=== PATIENT | female | born 1985 | race Caucasian/White ===

== ENCOUNTER 2021-06-02 05:34 | Emergency (ER) | payer BC, SELFPAY ==
[2021-06-02] VITALS (12 sets, daily range): BP systolic 115–130; BP diastolic 68–91; PULSE 49–95; RESP 18–24; TEMP 37.2; O2SAT 100
--- NOTE | ~2021-06-02 | CT_ITS ---
EXAMINATION: CT abdomen pelvis w con DATE: 06/02/2021 08:02 INDICATION: Abdominal pain, nausea, vomiting and diarrhea. TECHNIQUE: Computed tomography (CT) of the abdomen and pelvis was performed with 100 mL Omnipaque-350 intravenous contrast. Automated exposure control and iterative reconstruction technique were employe d. The dose-length product was 473.46 mGy-cm. COMPARISON: None FINDINGS: Lung bases are clear. Just inferior heart is normal. No pericardial or pleural effusion. Mild peripor damion edema. Gallbladder, spleen, pancreas and left adrenal gland are normal. Small calcification withi n the otherwise normal right adrenal gland. A couple small bilateral renal cysts, the larger on the r ight measuring 1 cm. Bowels including the appendix are normal. Bladder is normal. The uterus is not i dentified and has likely been surgically resected. 2.5 cm peripherally enhancing right ovarian corpus luteum cyst. Small amount of likely physiologic free fluid in the pelvis. No abscess or free intrape ritoneal gas. Transitional partially lumbarized S1 segment. Bilateral L5 pars intra-articular is defe cts. Small bone island at the left femoral head. IMPRESSION: 1. Fluid throughout the colon consistent with diarrhea of indeterminate etiology. 2. Nonspecific mild periportal edema. This can be seen with congestive heart failure cholangitis or a ggressive fluid resuscitation. Correlate with liver function tests. Reviewed, dictated and finalized at location A. IMPRESSION: 1. Fluid throughout the colon consistent with diarrhea of indeterminate etiolog y. 2. Nonspecific mild periportal edema. This can be seen with congestive heart fa ilure cholangitis or aggressive fluid resuscitation. Correlate with liver funct ion tests.
[2021-06-02] MEDS: ONDANSETRON INJ 4 MG/2 ML VIAL IV PUSH ×2 (05:50→08:50)
[2021-06-02] MEDS: SODIUM CHLORIDE 0.9% IV 1,000 ML 999 ML IV CONT ×2 (05:50→08:00)
[2021-06-02] MEDS: PROMETHAZINE HCL 25 MG/ML AMPUL 12.5 MG IV PUSH (05:57)
[2021-06-02 05:59] LABS: Basophils Percent Auto 0.4 % (0.2-1.2); Eosinophils Absolute Auto 0.3 K/mm3 (0-0.3); Eosinophils Percent Auto 2.6 % (0-4.4); Hematocrit 39.8 % (37.0-47.0); Hemoglobin 13.4 g/dL (12.0-15.0); Immature Granulocyte Absolute 0.06 K/mm3 (0.00-0.031); Immature Granulocyte Percent A 0.6 % (0-0.5); Lymphocytes Absolute Auto 3.37 K/mm3 (0.9-3.2); Lymphocytes Percent Auto 32.1 % (18.3-44.2); Mean Corpuscular HGB Conc 33.7 g/dl (32-36); Mean Corpuscular Hemoglobin 32.1 pg (26-34); Mean Corpuscular Volume 95.4 fl (80-100); Mean Platelet Volume 10.4 fl (7.4-10.4); Monocytes Absolute Auto 0.8 K/mm3 (0.1-0.6); Monocytes Percent Auto 7.4 % (2.6-8.5); Neutrophils Percent Auto 56.9 % (45.5-73.1); Platelet Count Result 296 k/mm3 (150-375); Red Blood Count 4.17 M/mm3 (4.2-5.4); Red Cell Distribution Width 12.2 % (11.5-14.5); White Blood Count 10.5 K/mm3 (4.5-10.0)
[2021-06-02] MEDS: SODIUM CHLORIDE 0.9% IV 100 ML 500 ML (06:00)
--- NOTE | 2021-06-02 06:00 | ED.NAVMDI ---
HPI - Nausea/Vomiting/Diarrhea General Chief complaint: Nausea/Vomiting/Diarrhea Stated complaint: Vomiting/Diarrhea Time Seen by Provider: 06/02/21 05:47 Source: patient Mode of arrival: ambulatory Limitations: no limitations History of Present Illness HPI Narrative: Patient is a 35-year-old female complaining of nausea, vomiting, diarrhea accompanied by abdominal discomfort that started 2 days ago. Patient describes her vomitus as nonbilious nonbloody. Patient describes her diarrhea as loose watery. Patient denies any fever or chills. Related Data Allergies Allergy/AdvReac Type Severity Reaction Status Date / Time No Known Allergies Allergy Unverified 11/27/16 09:09 Review of Systems Review of Systems: All systems reviewed & are unremarkable except as noted in HPI and below Constitutional: Constitutional: Denies body ache(s), Denies chills, Denies excessive sweating, Denies fatigue, Denies fever(s), Denies headache(s), Denies lethargy, Denies malaise, Denies weakness and Denies weight loss Eyes: Eyes: Denies blurry vision, Denies change in vision and Denies loss of vision ENT: Denies dizziness, Denies ear discharge, Denies headache(s), Denies lip swelling, Denies epistaxis, Denies nasal congestion, Denies neck pain, Denies throat swelling and Denies tongue swelling Cardiovascular: Cardiovascular: Denies chest pain, Denies chest pain at rest, Denies chest pain with activity, Denies diaphoresis, Denies rapid heart rate, Denies edema, Denies irregular heart rhythm, Denies lightheadedness, Denies palpitations, Denies dyspnea and Denies dyspnea on exertion Respiratory: Respiratory: Denies chest congestion, Denies cough, Denies hemoptysis, Denies dyspnea and Denies dyspnea on exertion Gastrointestinal: Gastrointestinal: Denies melena, Denies hematochezia and Denies hematemesis Musculoskeletal: Musculoskeletal: Denies abnormal gait, Denies deformity, Denies joint swelling, Denies limited range of motion, Denies neck pain and Denies numbness Neurologic: Denies Abnormal speech present, Denies abnormal gait, Denies confusion, Denies dizziness, Denies headache(s), Denies focal weakness, Denies loss of vision, Denies numbness, Denies Other visual disturbances, Denies Sensory deficit (Neuro) and Denies weakness Psychiatric: Psychiatric: Denies confusion, Denies depression, Denies auditory hallucinations, Denies homicidal ideation and Denies suicidal ideation Endocrine: Endocrine: Denies cold intolerance, Denies excessive sweating, Denies fatigue, Denies heat intolerance and Denies palpitations Hematologic/Lymphatic: Hematologic/Lymphatic: Denies easy bleeding and Denies easy bruising Allergic/Immunologic: Allergic/Immunologic: Denies lip swelling, Denies throat swelling and Denies tongue swelling PMFSH Family History Family History Mother Family history of mental disorder Family history of bipolar disorder Father Family history of schizophrenia, Onset Age: 52 Grandparent Malignant neoplasm of prostate Social History Social History Smoking status: Former smoker Second hand tobacco smoke exposure: No Smoking end date: 02/10/10 Alcohol intake: current Comments Past medical history: Depression, anxiety Social history: Former smoker, no EtOH use, occasional marijuana use Exam Const: General: cooperative, healthy appearing, comfortable, no acute distress, well developed, alert and awake; No confusion Orientation/consciousness: oriented to person, oriented to place, oriented to time, patient oriented x3 and No confusion Limitations: no limitations HENMT: Head: normal to inspection, normocephalic and atraumatic Ears: hearing grossly normal bilaterally, TM normal on the right and TM normal on the left General nose exam: Normal external nose present, Normal nares present and No nasal discharge present
[2021-06-02 06:11] LABS: Alanine Aminotransferase 17 U/L (4-35); Albumin Level 4.5 g/dL (3.5-5.1); Alkaline Phosphatase 56 U/L (38-126); Anion Gap 13 mmol/L (8-16); Aspartate Amino Transferase 30 U/L (14-36); Bilirubin,Total 0.2 mg/dL (0.2-1.3); Blood Urea Nitrogen 11 mg/dL (7-17); Calcium 9.2 mg/dL (8.4-10.2); Carbon Dioxide 21 mmol/L (22-30); Chloride 104 mmol/L (98-107); Estimated Glomerular Filt Rate > 60; Glucose 111 mg/dL (65-110); Lipase 31 U/L (23-300); Potassium 3.5 mmol/L (3.4-5.0); Sodium 138 mmol/L (137-145)
[2021-06-02 06:31] LABS: Add Urine Microscopic? YES; Appearance Urine Cloudy (Clear); Bilirubin Urine Negative (Negative); Blood Urine Negative (Negative); Color Urine Amber (Yellow); Glucose Urine UA Negative (Negative); Ketones Urine Trace mg/dL (Negative); Leukocyte Esterase Ur Negative LEU/UL (Negative); Mucus Urine Moderate /lpf; Nitrate Urine Negative (Negative); Protein Urine 1+ mg/dL (Negative); RBC Urine 0-2 /hpf (0-2); Specific Grav Ur 1.019 (1.001-1.035); Squamous Epithelial Cell Urine Moderate /hpf (Few); Urobilinogen Urine Negative mg/dL (<2.0); WBC Clumps Urine Present /HPF
[2021-06-02] MEDS: KETOROLAC 30 MG/ML VIAL (*BKC) IV PUSH (06:35)
--- NOTE | 2021-06-02 06:42 | ECG_ITS ---
Measurements Intervals [place] Rate: 58 P: -9 FL: 141 QRS: 69 QRSD: 86 T: 61 QT: 382 QTc: 377 Interpretive Statements SINUS BRADYCARDIA WITH MARKED SINUS ARRHYTHMIA OTHERWISE NORMAL ECG NO PREVIOUS ECG AVAILABLE FOR COMPARISON Electronically Signed On 06-02-2021 11:28:13 CDT by Lenin San M.D.
[2021-06-02] MEDS: PANTOPRAZOLE SODIUM IV 40 MG VIAL IV PUSH (07:16)
[2021-06-02] MEDS: HYDROmorphone HCL INJ (*CRX) 1 MG/ML SYR 0.5 MG IV PUSH (08:49)
[2021-06-02] MEDS: DICYCLOMINE HCL 10 MG CAPSULE PO (08:50)
== END 2021-06-02 09:15 | disposition home or self-care (01) ==
PROVIDERS: Emergency Provider Emergency Medicine; PCP Internal Medicine
DX: K52.9 Noninfective gastroenteritis and colitis, unspecified (principal); Z87.891 Personal history of nicotine dependence
CPT/HCPCS: 36415; 74177; 80053; 81001; 81025; 83690; 85025; 87086; 87088; 93005; 96361; 96374; 96375; 96376; 99284; A9270; C9113; J1170; J1885; J2405; J2550; J7030; Q9967

== ENCOUNTER 2021-06-03 13:29 | Emergency (ER) | payer BC, SELFPAY ==
[2021-06-03 13:31] VITALS: BP 100/81; PULSE 55; RESP 18; O2SAT 100
--- NOTE | 2021-06-03 13:46 | PC.NURSE ---
Patient reports she was here yesterday with N/V/D sent home with Zofran without relief. Patient hyperventilating upon publications writer's entrance to ED room. Coffee Attendant established peripheral IV to patient's left AC. Patient tolerated well. Blood work obtained, not sent at this time, awaiting doctor's orders. Coffee Attendant instructed patient to slow down her breathing.
--- NOTE | 2021-06-03 13:52 | ED.NAVMDI ---
HPI - Nausea/Vomiting/Diarrhea General Chief complaint: Nausea/Vomiting/Diarrhea Stated complaint: N/V/D Time Seen by Provider: 06/03/21 13:40 Source: patient Mode of arrival: ambulatory Limitations: no limitations History of Present Illness HPI Narrative: Patient is a 35-year-old female complaining of nausea, vomiting, diarrhea that started 3 days ago. Patient describes her vomitus nonbilious nonbloody. Patient describes her diarrhea as loose watery. Patient was seen here 2 days ago for similar complaints, had labs and CT scan done and all were within normal limits, diagnosed with cyclic vomiting syndrome likely caused by cannabis. Patient admits to regular THC use. Related Data Allergies Allergy/AdvReac Type Severity Reaction Status Date / Time No Known Allergies Allergy Unverified 11/27/16 09:09 Review of Systems Review of Systems: All systems reviewed & are unremarkable except as noted in HPI and below Constitutional: Constitutional: Denies body ache(s), Denies chills, Denies excessive sweating, Denies fatigue, Denies fever(s), Denies headache(s), Denies lethargy, Denies malaise, Denies weakness and Denies weight loss Eyes: Eyes: Denies blurry vision, Denies change in vision and Denies loss of vision ENT: Denies dizziness, Denies ear discharge, Denies headache(s), Denies lip swelling, Denies epistaxis, Denies nasal congestion, Denies neck pain, Denies throat swelling and Denies tongue swelling Cardiovascular: Cardiovascular: Denies chest pain, Denies chest pain at rest, Denies chest pain with activity, Denies diaphoresis, Denies rapid heart rate, Denies edema, Denies irregular heart rhythm, Denies lightheadedness, Denies palpitations, Denies dyspnea and Denies dyspnea on exertion Respiratory: Respiratory: Denies chest congestion, Denies cough, Denies hemoptysis, Denies dyspnea and Denies dyspnea on exertion Gastrointestinal: Gastrointestinal: Denies abdominal pain, Denies melena, Denies hematochezia and Denies hematemesis Musculoskeletal: Musculoskeletal: Denies abnormal gait, Denies deformity, Denies joint swelling, Denies limited range of motion, Denies neck pain and Denies numbness Neurologic: Denies Abnormal speech present, Denies abnormal gait, Denies confusion, Denies dizziness, Denies headache(s), Denies focal weakness, Denies loss of vision, Denies numbness, Denies Other visual disturbances, Denies Sensory deficit (Neuro) and Denies weakness Psychiatric: Psychiatric: Denies confusion, Denies depression, Denies auditory hallucinations, Denies homicidal ideation and Denies suicidal ideation Endocrine: Endocrine: Denies cold intolerance, Denies excessive sweating, Denies fatigue, Denies heat intolerance and Denies palpitations Hematologic/Lymphatic: Hematologic/Lymphatic: Denies easy bleeding and Denies easy bruising Allergic/Immunologic: Allergic/Immunologic: Denies lip swelling, Denies throat swelling and Denies tongue swelling PMFSH Family History Family History Mother Family history of mental disorder Family history of bipolar disorder Father Family history of schizophrenia, Onset Age: 52 Grandparent Malignant neoplasm of prostate Social History Social History Smoking status: Former smoker Second hand tobacco smoke exposure: No Smoking end date: 02/10/10 Alcohol intake: current Comments Past medical history: None Social history: Non-smoker, occasional EtOH use, regular marijuana use Exam Const: General: cooperative, healthy appearing, comfortable, no acute distress, well developed, alert and awake; No confusion Orientation/consciousness: oriented to person, oriented to place, oriented to time, patient oriented x3 and No confusion Limitations: no limitations HENMT: Head: normal to inspection, normocephalic and atraumatic Ears: hearing grossly normal bilaterally, TM normal
[2021-06-03] MEDS: SODIUM CHLORIDE 0.9% IV 1,000 ML 999 ML IV CONT (13:56)
[2021-06-03] MEDS: diphenhydrAMINE HCl INJ 50 MG/ML VIAL 25 MG IV PUSH (13:56)
[2021-06-03] MEDS: METOCLOPRAMIDE HCL INJ 10 MG/2 ML VIAL IV PUSH (13:58)
[2021-06-03 14:17] LABS: Basophils Percent Auto 0.1 % (0.2-1.2); Hematocrit 35.3 % (37.0-47.0); Hemoglobin 12.3 g/dL (12.0-15.0); Immature Granulocyte Absolute 0.06 K/mm3 (0.00-0.031); Immature Granulocyte Percent A 0.4 % (0-0.5); Lymphocytes Absolute Auto 2.28 K/mm3 (0.9-3.2); Lymphocytes Percent Auto 16.3 % (18.3-44.2); Mean Corpuscular HGB Conc 34.8 g/dl (32-36); Mean Corpuscular Hemoglobin 32.5 pg (26-34); Mean Corpuscular Volume 93.4 fl (80-100); Mean Platelet Volume 10.4 fl (7.4-10.4); Monocytes Absolute Auto 0.9 K/mm3 (0.1-0.6); Monocytes Percent Auto 6.1 % (2.6-8.5); Neutrophils Absolute Auto 10.8 K/mm3 (1.3-6.7); Neutrophils Percent Auto 77.1 % (45.5-73.1); Platelet Count Result 309 k/mm3 (150-375); Red Blood Count 3.78 M/mm3 (4.2-5.4); Red Cell Distribution Width 12.1 % (11.5-14.5)
[2021-06-03 14:20] LABS: Alanine Aminotransferase 23 U/L (4-35); Albumin Level 4.6 g/dL (3.5-5.1); Alkaline Phosphatase 52 U/L (38-126); Anion Gap 11 mmol/L (8-16); Aspartate Amino Transferase 35 U/L (14-36); Bilirubin,Total 0.7 mg/dL (0.2-1.3); Blood Urea Nitrogen 8 mg/dL (7-17); Calcium 9.3 mg/dL (8.4-10.2); Carbon Dioxide 20 mmol/L (22-30); Chloride 107 mmol/L (98-107); Estimated CRCL calculation 110 ml/min; Estimated Glomerular Filt Rate > 60; Glucose 109 mg/dL (65-110); Lipase 29 U/L (23-300); Potassium 3.1 mmol/L (3.4-5.0); Sodium 138 mmol/L (137-145)
[2021-06-03] MEDS: POTASSIUM CHLORIDE 20 MEQ TABLET PO (14:49)
[2021-06-03] MEDS: PANTOPRAZOLE SODIUM IV 40 MG VIAL IV PUSH (16:26)
== END 2021-06-03 17:22 | disposition home or self-care (01) ==
PROVIDERS: Emergency Provider Emergency Medicine; PCP Internal Medicine
DX: R11.15 Cyclical vomiting syndrome unrelated to migraine (principal); Z87.891 Personal history of nicotine dependence
CPT/HCPCS: 36415; 80053; 83690; 85025; 96361; 96374; 96375; 99284; A9270; C9113; J1200; J2765; J7030

== ENCOUNTER 2021-06-04 14:25 | Outpatient (CLI) | payer BC, SELFPAY ==
[2021-06-04 15:11] LABS: Basophils Percent Auto 0.3 % (0.2-1.2); Eosinophils Percent Auto 0.2 % (0-4.4); Hematocrit 36.2 % (37.0-47.0); Hemoglobin 12.4 g/dL (12.0-15.0); Immature Granulocyte Absolute 0.06 K/mm3 (0.00-0.031); Immature Granulocyte Percent A 0.5 % (0-0.5); Lymphocytes Absolute Auto 2.39 K/mm3 (0.9-3.2); Lymphocytes Percent Auto 21.2 % (18.3-44.2); Mean Corpuscular HGB Conc 34.3 g/dl (32-36); Mean Corpuscular Volume 93.5 fl (80-100); Mean Platelet Volume 10.5 fl (7.4-10.4); Monocytes Absolute Auto 0.8 K/mm3 (0.1-0.6); Monocytes Percent Auto 6.8 % (2.6-8.5); Platelet Count Result 287 k/mm3 (150-375); Red Blood Count 3.87 M/mm3 (4.2-5.4); Red Cell Distribution Width 12.1 % (11.5-14.5); White Blood Count 11.3 K/mm3 (4.5-10.0)
[2021-06-04 15:22] LABS: Alanine Aminotransferase 20 U/L (4-35); Albumin Level 4.6 g/dL (3.5-5.1); Alkaline Phosphatase 54 U/L (38-126); Amylase 110 U/L (30-110); Anion Gap 8 mmol/L (8-16); Aspartate Amino Transferase 31 U/L (14-36); Bilirubin,Total 0.5 mg/dL (0.2-1.3); Blood Urea Nitrogen 10 mg/dL (7-17); Calcium 8.9 mg/dL (8.4-10.2); Carbon Dioxide 24 mmol/L (22-30); Chloride 106 mmol/L (98-107); Estimated Glomerular Filt Rate > 60; Glucose 93 mg/dL (65-110); Lipase 41 U/L (23-300); Magnesium 2.1 mg/dL (1.6-2.3); Sodium 138 mmol/L (137-145)
== END 2021-06-04 14:26 | disposition home or self-care (01) ==
LOC: ANHLAB 14:32
PROVIDERS: PCP Physician Assistant; Visit Provider Physician Assistant
DX: R11.15 Cyclical vomiting syndrome unrelated to migraine (principal)
CPT/HCPCS: 36415; 80053; 82150; 83690; 83735; 85025

== ENCOUNTER 2022-06-13 10:13 | Outpatient (CLI) | payer BC, SELFPAY | END 2022-06-13 10:14 | disposition home or self-care (01) | LOC: ANHSURGERY 10:20 | PROVIDERS: PCP Physician Assistant; Visit Provider Obstetrics & Gynecology | DX: N80.9 Endometriosis, unspecified (principal); Z01.818 Encounter for other preprocedural examination | CPT/HCPCS: 36415; 86850; 86900; 86901 ==

== ENCOUNTER 2022-06-13 10:22 | Outpatient (CLI) | payer BC, SELFPAY ==
[2022-06-13 12:04] LABS: Thyroid Stimulating Hormone 0.892 uIU/mL (0.465-4.680)
[2022-06-17 23:55] LABS: Vitamin D 1,25 (OH)2 Total 37 pg/mL (18-72); Vitamin D2 1,25 (OH)2 <8 pg/mL; Vitamin D3 1,25 (OH)2 37 pg/mL
== END 2022-06-13 10:23 | disposition home or self-care (01) ==
PROVIDERS: PCP Physician Assistant; Visit Provider Physician Assistant
DX: R53.83 Other fatigue (principal)
CPT/HCPCS: 36415; 82652; 84443

== ENCOUNTER 2022-06-19 06:52 | Day surgery (SDC) | payer BC, SELFPAY ==
[2022-06-10 15:08] VITALS: BMI 29.2
--- NOTE | 2022-06-10 15:24 | SUR.PREOP ---
Report to the Outpatient Waiting Room, entrance under the green pavilion located off [facility], at time 1100 on date 06/19/22. Planned Procedure Time: 1300. Time changes happen often and if your time is changed the preop area will call you the afternoon before. - You and your visitor will be asked to self-screen and do not enter if you have any COVID symptoms. - A mask is optional within the hospital at this time. Patients may have clear liquids (water, carbonated beverages, clear teas, apple juice) until 3 hours prior to surgery with a maximum of 20 ounces. - No food from midnight until time of surgery - Infants may have breast milk until 4 hours before surgery, infant formula 6 hours prior to surgery. - Children will be allowed to drink immediately following surgery. If applicable, please bring a bottle or sippy cup to assist with drinking. Juice, water, soda, and popsicles are readily available. For infants on formula, please bring formula the day of surgery. Pacifiers are allowed. Take the following medications with a SIP of water the morning of surgery: JOVANNI DO NOT STOP ANY OF YOUR OTHER PRESCRIPTION MEDICATIONS PRIOR TO SURGERY ?EXCEPT THE FOLLOWING Medications to discontinue per physician STOP ALL VITAMINS AND SUPPLIMENTS 3 DAYS PRIOR TO PROCEDURE Date to take last dose 06/16/22 Please no make-up, nail macedonian, hairspray, perfume, deodorant, or body powder the day of surgery. No jewelry (including any body piercings) or valuables the day of surgery, leave them at home. Please take a shower or bath the night before, or the morning of, surgery with an antibacterial soap. Wear comfortable, loose fitting clothing. Children are encouraged to wear pajamas. - Jewelry must be removed prior to entering the operating room. Rings and piercings that are not removed may be cut off. - The hospital will not accept responsibility for valuables. - Please leave all valuables, including medications, at home the day of surgery. If you are going home after surgery, a licensed solo truck driver must drive you home. - NO public transportation without another adult if you receive anesthesia. - We recommend that an adult stay with you for 24 hours following discharge. - We also recommend that you do not drive, make important decision, drink alcoholic beverages, or take any drugs that were not prescribed by your health care provider for at least 24 hours after your discharge time. For Pediatric surgeries, we recommend two adults accompany the child home. Follow any additional instructions given to you from your surgeon. If you or anyone in your household have experienced Covid symptoms in the past week, please notify your surgeon or the nurse liaison at the phone number below for possible testing. Telephone instructions given to BIN MARTINEZ and asked if any additional questions and then verbalized understanding. Patient advised to call surgeon office or pre surgery nurse liaison [phone] if any additional questions.
[2022-06-19] VITALS (7 sets, daily range): BP systolic 104–130; BP diastolic 56–78; PULSE 52–101; RESP 14–18; TEMP 36.3–36.5; O2SAT 96–100; BMI 28.1
--- NOTE | 2022-06-19 10:30 | SUR.PREOP ---
1030- Notified patient and spouse Herber procedure start time will be delayed. Patient and Herber verbalized understanding.
[2022-06-19] MEDS: LACTATED RINGERS 1,000 ML 30 ML IV CONT ×2 (10:45→14:32)
[2022-06-19] MEDS: KETOROLAC 15 MG/ML VIAL (*BKC) IV PUSH (10:49)
[2022-06-19] MEDS: ACETAMINOPHEN 500 MG TABLET 1000 MG PO (10:49)
--- NOTE | 2022-06-19 11:05 | WPDANESEPPF ---
Anes - Initial Pre Proc Eval Procedure: Operation Date: 06/19/22 12:00 Proposed Procedures p Robotic Assisted Laparoscopic Bilateral Salpingo-oophorectomy - Diane August MD Date/Time: 06/19/22 11:05 Surgeon: Diane August MD Pre Op Diagnosis: Endom of Pelvis Patient Data Age: 36 Gender: F Height: 1.63 m Weight: 74.45 kg Allergies Allergy/AdvReac Type Severity Reaction Status Date / Time No Known Allergies Allergy Verified 06/19/22 10:54 Home Medications Medication Instructions Recorded Confirmed Type dicyclomine 10 mg capsule 10 mg PO BID PRN cramps #10 caps 06/02/21 06/10/22 Rx ondansetron 4 mg disintegrating 4 mg PO Q8H PRN nausea and 06/02/21 06/10/22 Rx tablet vomiting #10 tabs ondansetron 4 mg disintegrating 4 mg PO Q8H PRN nausea and 06/02/21 06/10/22 Rx tablet vomiting #14 tabs buspirone 10 mg tablet 10 mg PO TID 06/10/22 06/10/22 History duloxetine 60 mg capsule,delayed 60 mg PO DAILY 06/10/22 06/10/22 History release quetiapine 100 mg tablet 100 mg PO DAILY 06/10/22 06/10/22 History Patient hx anesthesia problems: none Family hx anesthesia problems: none Results Review: All pre-operative results and documents have been reviewed as part of the pre-operative evaluation. [facility] Past Medical History Medical History (Updated 06/19/22 @ 11:06 by Khurram Chamorro MD) Anxiety IBS (irritable bowel syndrome) Surgical History Surgical History (Updated 06/19/22 @ 11:06 by Khurram Chamorro MD) H/O: hysterectomy Family History Family History Mother Family history of mental disorder Family history of bipolar disorder Father Family history of schizophrenia, Onset Age: 52 Grandparent Malignant neoplasm of prostate Social History Social History Smoking status: Former smoker Second hand tobacco smoke exposure: No Smoking end date: 02/10/10 Alcohol intake: current Substance use type: marijuana Living arrangements: with family Spiritual care concerns: No Anes - Eval Final PreProcedure Day of Procedure 06/19/22 11:05 Patient weight: overweight Heart: regular rate and rhythm Lungs: clear to auscultation Airway: Mallampati scale class II Neurological: alert and oriented Last oral intake: >/= 8 hours ASA classification: II Emergent: no Anesthetic plan: proceed Anesthesia type and monitoring: general ETT and standard monitoring Results Review: All pre-operative results and documents have been reviewed as part of the pre-operative evaluation. Informed Consent: The patient's anesthetic plan and its attendant risks and benefits were discussed with the patient/family/POA. Questions were solicited and answers provided to the satisfaction of the patient/family/POA.
--- NOTE | 2022-06-19 12:47 | WPDHPUPDATE1 ---
History and Physical Update Update Date/Time: 06/19/22 12:47 History and Physical has been reviewed, including an updated exam of the patient. There are NO changes in the patient's condition. Risks, benefits, and alternatives have been discussed and questions answered. Patient agrees to proceed with procedure.
--- NOTE | 2022-06-19 14:39 | P.OP_ITS ---
Procedure Note - Detailed Date of Procedure 06/19/22 Pre-op Diagnosis Endom of Pelvis Post-op Diagnosis Same Procedure Performed Robot assisted Total hysterectomy with bilateral salpingectomy. Surgeon Diane August MD Anesthesia General Indications heavy vaginal bleeding, pelvic pain Findings normal-appearing uterus, ovaries, and left tube, right tube was partially resected. Some scarring over the posterior cul-de-sac peritoneum. Description of Procedure This patient was taken to the operating room. She was prepped and draped in the dorsal lithotomy position after induction of general anesthesia. The uterine manipulator and Cyn cup were placed. This was done with a speculum and tenaculum. The speculum was placed. The cervix was grasped with a tenaculum. The stay sutures were placed at 3 and 9:00 a.m.. The stay sutures of 0 Vicryl were tied to the appropriately Size scope after it was slipped around the cervix.. The tip of the MARTIN manipulator was placed in the intrauterine cavity. The cup was slid into place around the cervix and into the fornices. It was locked into place. The sutures were then wrapped around the handle and tied under tension. A 8 mm skin incision was made in the left upper quadrant the abdomen. a 5 mm Visiport trocar was inserted into abdominal cavity and pneumoperitoneum was achieved. A 8 mm supraumbilical incision was made and a 8 mm trocar was inserte d into the intrauterine cavity under direct visualization of the scope. an 8 mm incision was made in the right upper quadrant of the abdomen and an 8 mm robotic trocar was placed the inter uterine cavity under direct visualization the scope. An 11 mm trocar was inserted in the right upper quadrant of the abdomen rectal is a cystoscope after an incision was made there as well. The robot was docked. Electronic Orientation of the robot was performed. Bilateral ovaries were raised, infundibulopelvic ligaments were cauterized and transected, para ovarian tissue was transected and cauterized with vessel sealer as was the infundibulopelvic ligament. Some endometriosis was removed in the right lower pelvis. Ureter was dissected out on the right distal part the ovarian artery. Endometriosis was overlying the ureter there. It was cauterized when it was from the Ureter. It was examined directly. The vagina was irrigated with Betadine solution after removal of the Pneumo occluder. the trocars were removed after the robot was undocked. The skin was closed with subacute or Dermabond. The patient was taken to recovery room. She was stable condition. Sponge lap and needle counts were correct x2. Estimated Blood Loss 125 Urine Output 800 Drains Yes Packing No Pathology Yes Complications No immediate complications Condition Stable Disposition Floor
[2022-06-19] MEDS: fentaNYL CITRATE INJ (*CRX) 100 MCG/2 ML VIAL 25 MCG IV PUSH ×4 (14:54→15:09)
[2022-06-19] MEDS: oxyCODONE HCL (*CRX) 5 MG TAB IR PO (15:43)
--- NOTE | 2022-06-22 06:07 | W.PM.PROC2 ---
Procedure Note - Detailed Date of Procedure 06/22/22 Pre-op Diagnosis Endom of Pelvis , pelvic pain Post-op Diagnosis Same Procedure Performed robotic bilateral salpingo-oophorectomy with fulguration endometriosis. Surgeon Diane August MD Anesthesia General Indications Pelvic pain Findings scant areas of endometriosis deep in the pelvis and the vaginal cuff and in the right adnexa, normal-appearing ovaries Description of Procedure A 8 mm skin incision was made in the left upper quadrant the abdomen. a 5 mm Visiport trocar was inserted into abdominal cavity and pneumoperitoneum was achieved.? A 8 mm supraumbilical incision was made and a 8 mm trocar was inserted into the intrauterine cavity under direct visualization of the scope. an 8 mm incision was made in the right upper quadrant of the abdomen and an 8 mm robotic trocar was placed the inter uterine cavity under direct visualization the scope.? An 11 mm trocar was inserted in the right upper quadrant of the abdomen rectal is a cystoscope after an incision was made there as well.? The robot was docked.? Electronic? Orientation of the robot was performed. Bilateral ovaries were raised, infundibulopelvic ligaments were cauterized and transected, para ovarian tissue was transected and cauterized with vessel sealer as was the infundibulopelvic ligament.? Some endometriosis was removed in the right lower pelvis.? Ureter was dissected out on the right distal part the ovarian artery.? Endometriosis was overlying the ureter there.? It was cauterized when it was from the? Ureter. ?It was examined directly.? The vagina was irrigated with Betadine solution after removal of the Pneumo occluder. the trocars were removed after the robot was undocked.? The skin was closed with subacute or Dermabond.? The patient was taken to recovery room.? She was stable condition.? Sponge lap and needle counts were correct x2. Estimated Blood Loss 125 Urine Output 800 Pathology Yes Complications No immediate complications Condition Stable
== END 2022-06-19 16:13 | disposition home or self-care (01) ==
PROVIDERS: PCP Physician Assistant; Visit Provider Obstetrics & Gynecology
PROC: 8E0W4CZ Robotic Assisted Procedure of Trunk Region, Percutaneous Endoscopic Approach (ICD-10-PCS; CPT 49320; principal; 2022-06-19 12:00)
DX: N80.8 Other endometriosis (principal); R10.2 Pelvic and perineal pain; N80.A61 Endometriosis of right ureter, unspecified depth; F41.9 Anxiety disorder, unspecified; K58.9 Irritable bowel syndrome, unspecified; Z87.891 Personal history of nicotine dependence; F12.90 Cannabis use, unspecified, uncomplicated
CPT/HCPCS: 58661; 58662; 88305; A9270; J0330; J1100; J1170; J1630; J1885; J2250; J2405; J2704; J2710; J3010; J7030; J7120

== ENCOUNTER 2022-06-20 15:42 | Emergency (ER) | payer BC, SELFPAY ==
[2022-06-20] VITALS (10 sets, daily range): BP systolic 102–139; BP diastolic 68–84; PULSE 62–72; RESP 16–18; TEMP 36.6–36.8; O2SAT 92–100
--- NOTE | ~2022-06-20 | CT_ITS ---
EXAMINATION: CT abdomen pelvis w con DATE: 06/20/2022 17:41 INDICATION: Left lower quadrant abdominal pain. TECHNIQUE: Computed tomography (CT) of the abdomen and pelvis was performed with 100 mL Omnipaque 350 intravenous contrast. Automated exposure control and iterative reconstruction technique were employe d. The dose-length product was 570.23 mGy-cm. COMPARISON: CT abdomen and pelvis 06/02/2021 FINDINGS: The visualized portions of the lung bases demonstrate a calcified left lung nodule, consist ent with old granulomatous disease. No pleural effusion. The heart size is normal. No pericardial eff usion. There is periportal edema in the liver. The gallbladder is normal in size. Gallbladder wall th ickening is seen, likely interstitial edema. The spleen, pancreas, and left adrenal gland are normal. There is a dystrophic calcification in right adrenal gland. There is a 5 mm cyst in right kidney. Le ft kidney is normal. There is gas in the bladder lumen, likely from recent instrumentation. There are no dilated loops of bowel. The appendix is normal. There is physiologic fluid in the pelvis. There a re areas of fat stranding in anterior abdominal wall and foci of free intraperitoneal gas, consistent with recent surgery. There is mild thoracolumbar spondylosis. There are chronic bilateral L4 pars de fects. L5 is a transitional segment. IMPRESSION: 1. No specific etiology for the patient's symptoms. Reviewed, dictated and finalized at location E.
[2022-06-20] MEDS: MORPHINE SULFATE (*CRX) 4 MG/ML INJ IV PUSH (17:00)
[2022-06-20] MEDS: SODIUM CHLORIDE 0.9% IV 1,000 ML 999 ML IV CONT (17:01)
[2022-06-20 17:09] LABS: Basophils Absolute Auto 0.1 K/mm3 (0.0-0.1); Basophils Percent Auto 0.5 % (0.2-1.2); Eosinophils Absolute Auto 0.1 K/mm3 (0-0.3); Eosinophils Percent Auto 0.5 % (0-4.4); Hematocrit 34.3 % (37.0-47.0); Hemoglobin 11.5 g/dL (12.0-15.0); Immature Granulocyte Absolute 0.07 K/mm3 (0.00-0.031); Immature Granulocyte Percent A 0.5 % (0-0.5); Lymphocytes Absolute Auto 4.01 K/mm3 (0.9-3.2); Lymphocytes Percent Auto 29.9 % (18.3-44.2); Mean Corpuscular HGB Conc 33.5 g/dl (32-36); Mean Corpuscular Hemoglobin 31.8 pg (26-34); Mean Corpuscular Volume 94.8 fl (80-100); Mean Platelet Volume 10.3 fl (7.4-10.4); Monocytes Percent Auto 7.2 % (2.6-8.5); Neutrophils Absolute Auto 8.2 K/mm3 (1.3-6.7); Neutrophils Percent Auto 61.4 % (45.5-73.1); Platelet Count Result 262 k/mm3 (150-375); Red Blood Count 3.62 M/mm3 (4.2-5.4); Red Cell Distribution Width 12.5 % (11.5-14.5); White Blood Count 13.4 K/mm3 (4.5-10.0)
[2022-06-20 17:15] LABS: Alanine Aminotransferase 16 U/L (6-35); Albumin Level 4.3 g/dL (3.5-5.1); Alkaline Phosphatase 48 U/L (38-126); Anion Gap 7 mmol/L (8-16); Aspartate Amino Transferase 29 U/L (14-36); Bilirubin,Total 0.5 mg/dL (0.2-1.3); Blood Urea Nitrogen 10 mg/dL (7-17); Calcium 8.8 mg/dL (8.4-10.2); Carbon Dioxide 27 mmol/L (22-30); Chloride 105 mmol/L (98-107); Estimated CRCL calculation 113 ml/min; Estimated Glomerular Filt Rate > 60; Glucose 85 mg/dL (65-110); Lipase 20 U/L (23-300); Potassium 3.5 mmol/L (3.4-5.0); Sodium 139 mmol/L (137-145)
--- NOTE | 2022-06-20 17:33 | ED.GENADULT ---
HPI - General Adult General Chief complaint: Unspecified Stated complaint: post op pain Time Seen by Provider: 06/20/22 16:30 History of Present Illness HPI narrative: Patient is a 36-year-old female who presents ER with upper abdominal pain. Patient underwent bilateral oophorectomy yesterday by Dr. August for endometriosis. Pain increased today. She has been taking her Josephine without relief. No fevers or chills or sweats. No urinary frequency urgency or dysuria. She has not had a bowel movement yet. She is passing gas. Related Data Home Medications Medication Instructions Recorded Confirmed buspirone 10 mg tablet 10 mg PO TID 06/10/22 06/10/22 duloxetine 60 mg capsule,delayed 60 mg PO DAILY 06/10/22 06/10/22 release quetiapine 100 mg tablet 100 mg PO DAILY 06/10/22 06/10/22 Allergies Allergy/AdvReac Type Severity Reaction Status Date / Time No Known Allergies Allergy Verified 06/20/22 15:43 Review of Systems Review of Systems: All systems reviewed & are unremarkable except as noted in HPI and below Constitutional: Constitutional: Denies chills, Denies fatigue and Denies fever(s) Cardiovascular: Cardiovascular: Denies chest pain, Denies radiating jaw, neck or arm pain and Denies palpitations Respiratory: Respiratory: Denies cough and Denies dyspnea Gastrointestinal: Gastrointestinal: Reports abdominal pain, Denies diarrhea, Denies nausea and Denies vomiting Genitourinary: Genitourinary: Denies abnormal vaginal bleeding, Denies dysuria, Denies flank pain and Denies vaginal discharge [facility] Past Medical History Medical History (Updated 06/20/22 @ 18:32 by Stevan Thornton MD) Anxiety IBS (irritable bowel syndrome) Surgical History Surgical History (Updated 06/19/22 @ 11:06 by Khurram Chamorro MD) H/O: hysterectomy Family History Family History Mother Family history of mental disorder Family history of bipolar disorder Father Family history of schizophrenia, Onset Age: 52 Grandparent Malignant neoplasm of prostate Social History Social History Smoking status: Former smoker Second hand tobacco smoke exposure: No Smoking end date: 02/10/10 Alcohol intake: current Substance use type: marijuana Living arrangements: with family Spiritual care concerns: No Exam Narrative: GENERAL: Well-appearing, well-nourished, and in no acute distress. HEAD: Normocephalic, atraumatic. EYES: PERRL and EOMI. ENT: Mucous membranes moist. CHEST: Clear to auscultation. No respiratory distress. HEART: Regular rate and rhythm. Normal peripheral pulses. ABDOMEN: Soft, upper abdominal discomfort without guarding, nondistended, normal active bowel sounds. Well-healing surgical trocar sites. EXTREMITIES: Normal range of motion. No edema. SKIN: Warm, dry, no rash. NEURO: Alert and oriented x3. PSYCH: Normal mood and affect. Course Course Emergency Course: Labs unremarkable with exception of leukocytosis that is felt to be due to recent surgery. CT without acute fluid collection to indicate infection or other process. Patient informed of results and Dr. August informed of patient's visit to the ER. Patient without urinary symptoms and UA not felt to represent UTI at this time. Patient be discharged home. Vital Signs Vital signs: Vital Signs Temperature 97.9 F 06/20/22 15:45 Pulse Rate 62 06/20/22 15:45 Respiratory Rate 18 06/20/22 15:45 Blood Pressure 139/68 06/20/22 15:45 Pulse Oximetry 96 06/20/22 15:45 Oxygen Delivery Room Air 06/20/22 15:45 Temperature 97.9 F 06/20/22 15:45 Pulse Rate 62 06/20/22 15:45 Respiratory Rate 18 06/20/22 15:45 Blood Pressure 139/68 06/20/22 15:45 Pulse Oximetry 96 06/20/22 15:45 Oxygen Delivery Room Air 06/20/22 15:45 Medical Decision Making Vital Signs Vital Signs: Vital Sign
--- NOTE | 2022-06-20 17:48 | PC.NURSE ---
bed side preg done at 1745- it was neg
[2022-06-20 17:55] LABS: Appearance Urine Clear (Clear); Bacteria Urine 2+ /hpf; Bilirubin Urine Negative (Negative); Blood Urine Negative (Negative); Color Urine Yellow (Yellow); Glucose Urine UA Negative (Negative); Ketones Urine Negative (Negative); Leukocyte Esterase Ur Negative LEU/UL (Negative); Nitrate Urine Negative (Negative); Non Pathogenic Casts 0-2; Protein Urine Trace mg/dL (Negative); Squamous Epithelial Cell Urine Few /hpf (Few); Urobilinogen Urine 0.2 mg/dL (<2.0); pH Urine 6.5 (5.0-9.0)
[2022-06-20 17:57] LABS: Specific Grav Ur 1.059 (1.001-1.035)
[2022-06-20 17:58] LABS: Add Urine Microscopic? YES
== END 2022-06-20 18:55 | disposition home or self-care (01) ==
PROVIDERS: Emergency Provider Emergency Medicine; PCP Physician Assistant
DX: G89.18 Other acute postprocedural pain (principal); F41.9 Anxiety disorder, unspecified; Z87.891 Personal history of nicotine dependence
CPT/HCPCS: 36415; 74177; 80053; 81001; 83690; 85025; 87086; 87088; 96361; 96374; 99284; J2270; J7030; Q9967

== ENCOUNTER 2022-08-05 07:34 | Observation (INO) | payer BC, SELFPAY ==
--- NOTE | ~2022-08-05 | US_ITS ---
Limited Abdominal Sonogram: Real-time sonographic imaging of the right upper quadrant was performed. Clinical History: Epigastric pain Findings: The liver appears normal with no evidence of mass lesion or bile duct dilatation. Main por damion vein demonstrates normal direction of flow. The gallbladder is well distended, and appears normal with no evidence of gallstone or wall thickening. The common bile duct measures 8 mm. The visualize d pancreas, aorta, and IVC are unremarkable. Impression: No significant abnormality seen. Reviewed, dictated and finalized at location . Impression: No significant abnormality seen.
--- NOTE | ~2022-08-05 | CT_ITS ---
CT of the Abdomen and Pelvis: Indication: Abdominal pain Technique: 2.5 mm axial scans were obtained through the abdomen and pelvis following intravenous adm inistration of 100 cc of Omnipaque 350. Dose reduction technique was used on this scan by utilizing a utomated exposure control and iterative reconstruction technique. The dose-length product (DLP) was 4 85.72 mGy-cm. COMPARISON: 06/20/2022 Findings: Scans through the lung bases are unremarkable. The liver, spleen, pancreas, gallbladder, adrenals and kidneys are within normal limits. No evidence of aortic aneurysm. No lymphadenopathy. No bowel obstruction or bowel wall thickening. There is no evidence to suggest acute appendicitis. Images through the pelvis were performed. Urinary bladder unremarkable. No adnexal mass seen. No asci renata. Impression: No significant abnormalities seen. Reviewed, dictated and finalized at [facility]. Impression: No significant abnormalities seen.
[2022-08-05 07:46] VITALS: BP 110/78; PULSE 54; RESP 16; TEMP 36.3; O2SAT 100
[2022-08-05 08:30] LABS: Basophils Absolute Auto 0.1 K/mm3 (0.0-0.1); Basophils Percent Auto 0.4 % (0.2-1.2); Eosinophils Absolute Auto 0.1 K/mm3 (0-0.3); Eosinophils Percent Auto 0.5 % (0-4.4); Hemoglobin 12.6 g/dL (12.0-15.0); Immature Granulocyte Absolute 0.06 K/mm3 (0.00-0.031); Immature Granulocyte Percent A 0.5 % (0-0.5); Lymphocytes Absolute Auto 1.45 K/mm3 (0.9-3.2); Lymphocytes Percent Auto 11.9 % (18.3-44.2); Mean Corpuscular HGB Conc 34.1 g/dl (32-36); Mean Corpuscular Hemoglobin 32.1 pg (26-34); Mean Corpuscular Volume 94.1 fl (80-100); Mean Platelet Volume 10.2 fl (7.4-10.4); Monocytes Absolute Auto 0.7 K/mm3 (0.1-0.6); Monocytes Percent Auto 5.6 % (2.6-8.5); Neutrophils Absolute Auto 9.9 K/mm3 (1.3-6.7); Neutrophils Percent Auto 81.1 % (45.5-73.1); Platelet Count Result 274 k/mm3 (150-375); Red Blood Count 3.93 M/mm3 (4.2-5.4); Red Cell Distribution Width 12.8 % (11.5-14.5); White Blood Count 12.2 K/mm3 (4.5-10.0)
[2022-08-05 08:41] LABS: Alanine Aminotransferase 38 U/L (6-35); Albumin Level 4.5 g/dL (3.5-5.1); Alkaline Phosphatase 63 U/L (38-126); Anion Gap 10 mmol/L (8-16); Aspartate Amino Transferase 47 U/L (14-36); Bilirubin,Total 0.6 mg/dL (0.2-1.3); Blood Urea Nitrogen 17 mg/dL (7-17); Calcium 9.5 mg/dL (8.4-10.2); Carbon Dioxide 26 mmol/L (22-30); Chloride 102 mmol/L (98-107); Estimated CRCL calculation 93 ml/min; Estimated Glomerular Filt Rate > 60; Glucose 105 mg/dL (65-110); Sodium 138 mmol/L (137-145)
[2022-08-05 08:43] LABS: Ethanol < 10 mg/dL (<10)
[2022-08-05] MEDS: ONDANSETRON INJ 4 MG/2 ML VIAL IV PUSH ×3 (08:44→14:13)
[2022-08-05] MEDS: MORPHINE SULFATE (*CRX) 4 MG/ML INJ IV PUSH ×2 (08:44→10:59)
[2022-08-05 08:46] LABS: Appearance Urine Cloudy (Clear); Bacteria Urine 1+ /hpf; Bilirubin Urine Negative (Negative); Blood Urine Negative (Negative); Color Urine Dark Yellow (Yellow); Glucose Urine UA Negative (Negative); Ketones Urine 2+ mg/dL (Negative); Leukocyte Esterase Ur Trace LEU/UL (Negative); Mucus Urine Present /lpf; Nitrate Urine Negative (Negative); Non Pathogenic Casts 0-2; Protein Urine 1+ mg/dL (Negative); Specific Grav Ur 1.038 (1.001-1.035); Squamous Epithelial Cell Urine Moderate /hpf (Few)
[2022-08-05 08:47] LABS: Add Urine Microscopic? YES
[2022-08-05 08:52] LABS: Amphetamine Screen Urine Negative (Negative); Barbiturate Screen Urine Negative (Negative); Benzodiazepines Screen Urine Negative (Negative); Cannabinoid Screen Urine Positive (Negative); Cocaine Screen Urine Negative (Negative); Methadone Screen Urine Negative (Negative); Opiate Screen Urine Negative (Negative); Phencyclidine Screen Urine Negative (Negative)
--- NOTE | 2022-08-05 09:06 | ED.GENADULT ---
HPI - General Adult General Chief complaint: Psychiatric Symptoms Stated complaint: abd pain/n/si Time Seen by Provider: 08/05/22 07:59 History of Present Illness HPI narrative: Patient is a 37-year-old female who presents to the ER with both abdominal pain and suicidal ideation. Patient reports has had abdominal pain for 3 days. It is in her epigastric region. It occurred because she ate some pineapple pizza the day before. She has IBS. She is found no aggravating factors for her discomfort. It is constant and cramping. It is worse if she is hunched over in a ball. No vomiting or diarrhea. Denies fevers or chills or sweats. No history of gallstones. She reports due to her pain she has become suicidal but has no plan to kill herself. She denies any hospitalization for suicidal ideation but sees a therapist every 1 to 2 weeks and has frequent thoughts of suicidal ideation that are managed. Related Data Home Medications Medication Instructions Recorded Confirmed buspirone 10 mg tablet 10 mg PO TID 06/10/22 08/05/22 duloxetine 60 mg capsule,delayed 60 mg PO DAILY 06/10/22 08/05/22 release quetiapine 100 mg tablet 100 mg PO DAILY 06/10/22 08/05/22 estradiol 1.25 gram/actuation 1 pump topical DAILY 08/05/22 08/05/22 (0.06%) transdermal gel pump (EstroGel) Allergies Allergy/AdvReac Type Severity Reaction Status Date / Time No Known Allergies Allergy Verified 08/05/22 08:23 Review of Systems Review of Systems: All systems reviewed & are unremarkable except as noted in HPI and below Constitutional: Constitutional: Denies chills, Denies fatigue and Denies fever(s) ENT: Denies nasal congestion and Denies sore throat Cardiovascular: Cardiovascular: Denies chest pain, Denies rapid heart rate and Denies radiating jaw, neck or arm pain Gastrointestinal: Gastrointestinal: Reports abdominal pain, Denies diarrhea, Denies nausea and Denies vomiting Genitourinary: Genitourinary: Denies nocturia, Denies dysuria and Denies flank pain PMF Past Medical History Medical History (Updated 08/05/22 @ 19:56 by Stevan Thornton MD) Anxiety Irritable bowel syndrome Surgical History Surgical History (Updated 06/26/23 @ 15:53 by Juanita Lindsay PA-C) History of bilateral salpingo-oophorectomy (06/19/22) History of partial hysterectomy Family History Family History Mother Family history of mental disorder Family history of bipolar disorder Father Family history of schizophrenia, Onset Age: 52 Grandparent Malignant neoplasm of prostate Social History Social History Smoking packs per day: 0.14 Smoking cigarettes per day: 2.8 Years smoked: 10 Smoking pack-years: 1.40 Smoking status: Former smoker Tobacco type: cigarettes Second hand tobacco smoke exposure: No Smoking end date: 02/10/10 Alcohol intake: former Drinks per week: 1 Substance use: current Substance use type: marijuana Last use: 08/03/2022 Lack of Transportation: No Lack of Food: Never True Current Housing: I Have Housing Concerned About Future Housing: No Difficulty Paying Gas/Electric Bills: No Difficulty Paying for Meds: No Currently Unemployed: No Education: Bachelor's Degree Difficulty w/ Childcare or Family Care: No Living arrangements: with family Spiritual care concerns: No Exam Narrative: GENERAL: Uncomfortable appearing, rolling around on the bed and constantly moving, she will stop to discuss her history. HEAD: Normocephalic, atraumatic. ENT: Mucous membranes moist. CHEST: Clear to auscultation. No respiratory distress. HEART: Regular rate and rhythm. Normal peripheral pulses. ABDOMEN: Soft, mild tenderness in the epigastrium without guarding, nondistended. EXTREMITIES: Normal range of motion. No edema. SKIN: Warm, dry, no rash. NEURO: Alert and o
[2022-08-05 09:11] LABS: SARS-CoV-2 RNA PCR Negative (Negative)
[2022-08-05 11:11] VITALS: BP 127/75; PULSE 86; RESP 18; O2SAT 100
[2022-08-05] MEDS: DICYCLOMINE HCL INJ 20 MG/2 ML VIAL IM (13:42)
[2022-08-05] MEDS: SIMETHICONE 125 MG CHEW TAB PO (14:08)
[2022-08-05] MEDS: SODIUM CHLORIDE 0.9% IV 1,000 ML 125 ML IV CONT (14:13)
[2022-08-05 15:08] VITALS: BP 123/65; PULSE 60; RESP 20; O2SAT 99
[2022-08-05 15:15] VITALS: BMI 27.5
--- NOTE | 2022-08-05 15:15 | ADMGEN ---
This patient, Kahty Lemus, was admitted to [facility] Surg Room 303-01. Patient/family oriented to hospital policies and general routines including ID bracelet, bed and alarms, visiting hours, pain management, procedures, bathroom and other care routines, personal items, smoking policy, room service/diet, and visiting hours. Information on how to activate the Rapid Response Team has been discussed. Patient/Family are encouraged to report perceived risks to care and to ask questions if they do not understand what they are told or what they should do.
--- NOTE | 2022-08-05 15:42 | PM.IMHP ---
H&P: HPI History of Present Illness Date/Time: 08/05/22 16:00 Chief Complaint: Abdominal pain, nausea, vomiting, harmful thoughts. Narrative: This is a 37-year-old female with history of diverticulitis, irritable bowel syndrome, endometriosis, depression, and anxiety who presented to the emergency department via private vehicle from home for evaluation of abdominal pain, nausea, vomiting, and harmful thoughts. The patient provides the following history. She and her family went camping over the weekend and she had pineapple pizza for dinner on Friday. Later that evening she developed a severe twisting/grinding pain in the left side of the abdomen which has been constant since the outset. It does radiate somewhat into the epigastrium and right upper quadrant but seems to be settled more so in the left mid and upper quadrants. She reports associated nausea and vomiting and she had several episodes of emesis including what looks like undigested food particles throughout the next couple of days. Her pain is so severe at times that she has chills and sweats. She has been belching quite a bit. Her symptoms do improve slightly with vomiting but not significantly so. Tylenol and ibuprofen have not provided her with much benefit. Food seems to make it worse and she has not been able to hold down anything for couple of days though sometimes she is able to keep water down for longer than 20 through 30 minutes. On arrival to triage was she reported that she wanted to kill herself. Vital signs were stable on arrival. Labs were significant for WBC count of 12.2, potassium 3.0, creatinine 0.70, AST 47, ALT 38. Urine was cloudy and concentrated with 2+ ketones, trace leukocyte esterase, 3 to 5 RBC, 11 to 20 WBC, moderate squamous cells, and 1+ bacteria. Urine drug screen was positive for cannabinoids. CT abdomen and pelvis and right upper quadrant ultrasound showed no significant abnormalities. In the ED she received IV fluids, analgesics, and antiemetics with some improvement. Crisis came to evaluate the patient given concerns for possible suicidal ideation and she was initially to be discharged home with a safety contract however she once again started to have nausea and vomiting and she is being admitted in this setting for further treatment and possible GI consultation. I received a phone call from the patient's nurse that she had a moderate risk on her [place] score; she reported to the nurse that she had thought about suicide in the last 90 days and that she had a plan. I spent at least 30 minutes at bedside with patient and her , with the patient's permission. She has a longstanding history of depression and more recently anxiety. Years ago she had attempted suicide by overdosing on pills. On occasion, she has thoughts of suicide and assumes she would try to overdose again if she was ever going to attempt suicide. Today she felt hopeless due to the extreme pain and admits that she said she would rather than go on with the pain. She does not have active thoughts of suicide and has no plan. At this time she is feeling a bit better after receiving Bentyl, Phenergan, and Toradol. She denies sick contacts. She rarely has indigestion and she has no history of GERD or peptic ulcer. No hematemesis, melena, and hematochezia. She smokes marijuana 3 times a day, has never been diagnosed with cyclic vomiting syndrome, but she has heard of it. She endorses quite a bit of stress, may be a bit more recently than usual. She denies dysuria, urinary urgency, hesitancy, and frequency. No fevers. She denies chest pain and shortness of breath. She has not had any falls or trauma. It should be noted that she had a partial hysterectomy many years ago and just last month she had bilateral salpingo-oophorectomy for ongoing pelvic pain related to endometriosis. Her pelvic pain has improved tremendously since that surgery. This pain is not similar. Review of Systems Review of Systems: Twelve syst
[2022-08-05] MEDS: KETOROLAC 30 MG/ML VIAL (*BKC) IV PUSH (16:24)
[2022-08-05] MEDS: PROMETHAZINE HCL 25 MG/ML AMPUL 12.5 MG IV PUSH (16:24)
[2022-08-05] MEDS: LACTATED RINGERS 1,000 ML 999 ML IV CONT (17:00)
[2022-08-05] MEDS: POTASSIUM CHLORIDE INJ 40 MEQ in SODIUM CHLORIDE 0.9% IV 500 ML 130 MEQ IVPB (17:42)
[2022-08-05] MEDS: KCL 20 MEQ/D5/0.9% SOD CHL 1,000 ML 50 ML IV CONT (17:43)
[2022-08-05] MEDS: LORazepam INJ (*CRX) 2 MG/ML VIAL 0.5 MG IV PUSH (17:49)
--- NOTE | 2022-08-05 18:47 | PC.NURSE ---
This patient admitted to the floor from ED where she had been cleared by outside psych for her SI. Pt arrived to the floor with a safety plan in place. Upon admission, Lamb assessment screen completed by this RN and GN. Pt rates high risk. This RN notified admitting provider who originally placed her on SP. Pt and spouse made aware, and they were quite upset as they were promised to not need the SP. This RN, GN and drug abuse resistance education officer to the room to discuss need for SP. Provider eventually able to come to bedside. Long discussion and evaluation occurred. complaint evaluation supervisor also to bedside for discussion. After 30+ minutes, all parties agree that pt is not currently suicidal at this moment. Pt will not need SPs, but she has been informed that she will need to complete a [place] assessment q12HR. Pt occasionally becomes extremely anxious, crying and vomiting. Pt requesting additional phenergran and started crying when she was told that she could not have it yet. Requested, received and gave ativan 0.5mg for anxiety. Will continue to monitor and share with night RN these concerns/findings.
--- NOTE | 2022-08-05 20:58 | PHAR ---
NONFORMULARY DRUG (Estradiol [Estrogel] 1.25 gram/actuation gel in metered-dose pump) BROUGHT IN FROM HOME
[2022-08-05 21:07] VITALS: BP 97/53; PULSE 76; RESP 18; TEMP 36.9; O2SAT 97
[2022-08-05] MEDS: busPIRone HCL 10 MG TABLET PO (21:28)
[2022-08-05] MEDS: PANTOPRAZOLE SODIUM IV 40 MG VIAL IV PUSH (21:28)
[2022-08-06] MEDS: PROMETHAZINE HCL 25 MG/ML AMPUL 12.5 MG IV PUSH ×4 (01:07→20:00)
[2022-08-06] MEDS: MORPHINE SULFATE (*CRX) 2 MG/ML INJ IV PUSH ×3 (01:32→21:02)
[2022-08-06 05:00] VITALS: BP 107/59; PULSE 60; RESP 18; TEMP 36.4; O2SAT 100
[2022-08-06] MEDS: busPIRone HCL 10 MG TABLET PO ×3 (05:12→22:13)
[2022-08-06 06:13] LABS: Hematocrit 33.6 % (37.0-47.0); Mean Corpuscular HGB Conc 32.7 g/dl (32-36); Mean Corpuscular Hemoglobin 31.9 pg (26-34); Mean Corpuscular Volume 97.4 fl (80-100); Mean Platelet Volume 11.5 fl (7.4-10.4); Platelet Count Result 206 k/mm3 (150-375); Red Blood Count 3.45 M/mm3 (4.2-5.4); Red Cell Distribution Width 12.9 % (11.5-14.5); White Blood Count 15.8 K/mm3 (4.5-10.0)
[2022-08-06 06:26] LABS: Alanine Aminotransferase 30 U/L (6-35); Albumin Level 3.9 g/dL (3.5-5.1); Alkaline Phosphatase 57 U/L (38-126); Anion Gap 7 mmol/L (8-16); Aspartate Amino Transferase 34 U/L (14-36); Bilirubin,Total 0.8 mg/dL (0.2-1.3); Blood Urea Nitrogen 15 mg/dL (7-17); Calcium 8.4 mg/dL (8.4-10.2); Carbon Dioxide 22 mmol/L (22-30); Chloride 107 mmol/L (98-107); Estimated CRCL calculation 101 ml/min; Estimated Glomerular Filt Rate > 60; Glucose 103 mg/dL (65-110); Magnesium 2.1 mg/dL (1.6-2.3); Potassium 3.4 mmol/L (3.4-5.0); Sodium 136 mmol/L (137-145)
[2022-08-06] MEDS: PANTOPRAZOLE SODIUM IV 40 MG VIAL IV PUSH ×2 (10:23→22:13)
[2022-08-06] MEDS: DULoxetine HCL 60 MG CAPSULE.DR PO (10:24)
[2022-08-06] MEDS: QUEtiapine FUMARATE 100 MG TABLET PO (10:24)
[2022-08-06] MEDS: ACETAMINOPHEN 325 MG TABLET 650 MG PO (10:27)
--- NOTE | 2022-08-06 12:21 | PM.IMPN ---
Progress Note: A&P Assessment and Plan (1) Abdominal pain: Code(s): R10.9 - Unspecified abdominal pain Status: Acute (2) Intractable nausea and vomiting: Code(s): R11.2 - Nausea with vomiting, unspecified Status: Acute (3) Elevated LFTs: Code(s): R79.89 - Other specified abnormal findings of blood chemistry Status: Acute (4) Hypokalemia: Code(s): E87.6 - Hypokalemia Status: Acute (5) Dehydration: Code(s): E86.0 - Dehydration Status: Acute (6) Irritable bowel syndrome: Code(s): K58.9 - Irritable bowel syndrome without diarrhea Status: Acute (7) Depression: Code(s): F32.A - Depression, unspecified Status: Acute (8) Leukocytosis: Code(s): D72.829 - Elevated white blood cell count, unspecified Status: Acute (9) Abnormal urinalysis: Code(s): R82.90 - Unspecified abnormal findings in urine Status: Acute Plan The patient presented to the emergency department for evaluation of left-sided abdominal pain, nausea, and vomiting as per HPI. CT of the abdomen and pelvis as well as right upper quadrant ultrasound were unremarkable. LFTs mildly elevated on admission, normalized today. History does not seem consistent with gallbladder disease. Gastritis, esophagitis, and peptic ulcers are a possibility. Her symptoms may be related to irritable bowel syndrome and possible cyclic vomiting syndrome though viral infection is also possibility. Given persistence and inability to tolerate oral intake, will proceed with Gastroenterology consultation. Continue with supportive care to include analgesics and antiemetics. Continue Protonix. White blood cell count increased today to 15.8. Patient remains afebrile. urinalysis is a bit abnormal however looks contaminated and she has no symptoms to suggest active UTI. Urine culture is pending. Trend CBC with differential. Will continue with IV fluid hydration as patient is not tolerating much oral intake. Potassium has been supplemented and has normalized today. Patient endorsed suicidal ideation on presentation, she was evaluated by crisis and safety contract was completed. No current plans or thoughts of suicide. Denies any suicidal ideation at this time. Subjective Date/time seen: 08/06/22 12:21 Interval history: Date of service: 08/06/2022 Kathy Lemus is a 37-year-old female with a history of anxiety, depression, suicidal ideation, and IBS who is seen in follow-up for abdominal pain, nausea, vomiting. The patient states that she had 1 episode of emesis today. She also continues to endorse nausea that does improve slightly with antiemetics. Her main complain is mid abdominal pain which she describes as a twisting and turning sensation. Currently rated 6/10, this morning was up to 10/10 prior to receiving analgesics. Pain improves with heating pad, worsened with movement. Pain was very severe this morning when she had an episode of emesis. States her last bowel movement was Friday. She denies abdominal bloating. Endorses chills and sweats but no fever. Denies dizziness or lightheadedness. No chest pain. Denies dysuria, hematuria, urgency, frequency. She denies any harmful thoughts at this time, states this only occurs when her pain is severe. Review of Systems Review of Systems: All systems reviewed & are unremarkable except as noted in HPI and below Exam Narrative: General: thin, well-appearing 37-year-old female, supine in bed, comfortable, NARD Neuro: awake, alert and oriented x4, speech clear, no focal neuro deficits noted HEENMT: normocephalic, atraumatic, EOMI, sclerae anicteric Respiratory: clear to auscultation bilaterally, nonlabored breathing Cardio: regular rate, regular rhythm with S1-S2 Abdomen: nondistended, normoactive bowel sounds, soft, nontender to palpation Extremities: no edema, erythema, or tenderness to palpation, DP pulses 2+ bila
[2022-08-06 14:00] VITALS: BP 125/70; PULSE 72; RESP 16; TEMP 36.6; O2SAT 99
[2022-08-06] MEDS: KCL 20 MEQ/D5/0.9% SOD CHL 1,000 ML 50 ML IV CONT (14:12)
[2022-08-06] MEDS: DICYCLOMINE HCL 10 MG CAPSULE 20 MG PO (15:52)
[2022-08-06] MEDS: ONDANSETRON INJ 4 MG/2 ML VIAL IV PUSH (21:00)
[2022-08-06 21:57] VITALS: BP 132/69; PULSE 53; RESP 16; TEMP 36.9; O2SAT 100
[2022-08-06] MEDS: SALINE LOCK FLUSH 10 ML IV PUSH (22:14)
[2022-08-07] MEDS: PROMETHAZINE HCL 25 MG/ML AMPUL 12.5 MG IV PUSH ×2 (04:55→10:42)
[2022-08-07] MEDS: SALINE LOCK FLUSH 10 ML IV PUSH ×2 (04:56→15:14)
[2022-08-07] MEDS: DICYCLOMINE HCL 10 MG CAPSULE 20 MG PO (05:03)
[2022-08-07] MEDS: busPIRone HCL 10 MG TABLET PO ×2 (05:03→15:14)
[2022-08-07 05:22] LABS: Hematocrit 30.3 % (37.0-47.0); Hemoglobin 10.5 g/dL (12.0-15.0); Mean Corpuscular HGB Conc 34.7 g/dl (32-36); Mean Corpuscular Hemoglobin 32.1 pg (26-34); Mean Corpuscular Volume 92.7 fl (80-100); Mean Platelet Volume 10.1 fl (7.4-10.4); Platelet Count Result 258 k/mm3 (150-375); Red Blood Count 3.27 M/mm3 (4.2-5.4); Red Cell Distribution Width 12.5 % (11.5-14.5); White Blood Count 9.7 K/mm3 (4.5-10.0)
[2022-08-07 05:32] LABS: Anion Gap 3 mmol/L (8-16); Blood Urea Nitrogen 8 mg/dL (7-17); Calcium 8.5 mg/dL (8.4-10.2); Carbon Dioxide 29 mmol/L (22-30); Chloride 103 mmol/L (98-107); Estimated CRCL calculation 116 ml/min; Estimated Glomerular Filt Rate > 60; Glucose 102 mg/dL (65-110); Potassium 3.4 mmol/L (3.4-5.0); Sodium 135 mmol/L (137-145)
[2022-08-07 05:43] VITALS: BP 124/63; PULSE 55; RESP 16; TEMP 36.8; O2SAT 100
[2022-08-07] MEDS: ONDANSETRON INJ 4 MG/2 ML VIAL IV PUSH (08:42)
[2022-08-07] MEDS: ACETAMINOPHEN 325 MG TABLET 650 MG PO (08:42)
[2022-08-07] MEDS: DULoxetine HCL 60 MG CAPSULE.DR PO (08:43)
[2022-08-07] MEDS: PANTOPRAZOLE SODIUM IV 40 MG VIAL IV PUSH (08:44)
[2022-08-07] MEDS: QUEtiapine FUMARATE 100 MG TABLET PO (08:44)
[2022-08-07] MEDS: LACTATED RINGERS 1,000 ML 150 ML IV CONT (11:00)
[2022-08-07 11:03] VITALS: BP 129/76; PULSE 55; RESP 18; TEMP 36.9; O2SAT 100
--- NOTE | 2022-08-07 11:21 | WPDANESEPPF ---
Anes - Initial Pre Proc Eval Procedure: Operation Date: 08/07/22 12:00 Proposed Procedures p Esophagogastroduodenoscopy - Reddy Akins MD Date/Time: 08/07/22 11:21 Surgeon: Charisse Bautista PA-C Pre Op Diagnosis: Epigastric Pain Patient Data Age: 37 Gender: F Height: 1.63 m Weight: 78.5 kg Last Vital Signs Temp 98.5 F 08/07/22 11:03 Pulse 55 L 08/07/22 11:03 Resp 18 08/07/22 11:03 BP 129/76 08/07/22 11:03 Pulse Ox 100 08/07/22 11:03 O2 Del Method Room Air 08/07/22 11:03 Allergies Allergy/AdvReac Type Severity Reaction Status Date / Time No Known Allergies Allergy Verified 08/07/22 11:01 Home Medications Medication Instructions Recorded Confirmed Type buspirone 10 mg tablet 10 mg PO TID 06/10/22 08/05/22 History duloxetine 60 mg capsule,delayed 60 mg PO DAILY 06/10/22 08/05/22 History release quetiapine 100 mg tablet 100 mg PO DAILY 06/10/22 08/05/22 History estradiol 1.25 gram/actuation 1 pump topical DAILY 08/05/22 08/05/22 History (0.06%) transdermal gel pump (EstroGel) Laboratory Tests 08/07/22 08/07/22 05:10 05:12 WBC 9.7 K/mm3 (4.5-10.0) RBC 3.27 L M/mm3 (4.2-5.4) Hgb 10.5 L g/dL (12.0-15.0) Hct 30.3 L % (37.0-47.0) MCV 92.7 fl (80-100) MCH 32.1 pg (26-34) MCHC 34.7 g/dl (32-36) RDW 12.5 % (11.5-14.5) Plt Count 258 k/mm3 (150-375) MPV 10.1 fl (7.4-10.4) Sodium 135 L mmol/L (137-145) Potassium 3.4 mmol/L (3.4-5.0) Chloride 103 mmol/L (98-107) Carbon Dioxide 29 mmol/L (22-30) Anion Gap 3 L mmol/L (8-16) BUN 8 D mg/dL (7-17) Creatinine 0.60 L mg/dL (0.7-1.0) Estim Creat Clear Calc 116 ml/min Estimated GFR > 60 (59 - ) Glucose 102 mg/dL (65-110) Calcium 8.5 mg/dL (8.4-10.2) Patient hx anesthesia problems: none Family hx anesthesia problems: none Results Review: All pre-operative results and documents have been reviewed as part of the pre-operative evaluation. [facility] Past Medical History Medical History (Updated 08/06/22 @ 12:45 by Charisse Bautista PA-C) Anxiety Depression Irritable bowel syndrome Surgical History Surgical History (Updated 08/05/22 @ 15:53 by Juanita Lindsay PA-C) History of bilateral salpingo-oophorectomy (06/19/22) History of partial hysterectomy Family History Family History Mother Family history of mental disorder Family history of bipolar disorder Father Family history of schizophrenia, Onset Age: 52 Grandparent Malignant neoplasm of prostate Social History Social History Smoking packs per day: 0.14 Smoking cigarettes per day: 2.8 Years smoked: 10 Smoking pack-years: 1.40 Smoking status: Former smoker Tobacco type: cigarettes Second hand tobacco smoke exposure: No Smoking end date: 02/10/10 Alcohol intake: former Drinks per week: 1 Substance use: current Substance use type: marijuana Last use: 08/03/2022 Lack of Transportation: No Lack of Food: Never True Current Housing: I Have Housing Concerned About Future Housing: No Difficulty Paying Gas/Electric Bills: No Difficulty Paying for Meds: No Currently Unemployed: No Education: Bachelor's Degree Difficulty w/ Childcare or Family Care: No Living arrangements: with family Spiritual care concerns: No Anes - Eval Final PreProcedure Day of Procedure 08/07/22 11:21 Patient weight: obese Heart: regular rate and rhythm Lungs: clear to auscultation Airway: Mallampati scale class II Neurological: alert and oriented Last oral intake: >/= 8 hours ASA classification: II Emergent: no Anesthetic plan: proceed Anesthesia type and monitoring: general GIVS and standard m
--- NOTE | 2022-08-07 11:45 | WPDGICN ---
Assessment and Plan Assessment and plan (1) Intractable nausea and vomiting: Code(s): R11.2 - Nausea with vomiting, unspecified Status: Acute Assessment and Plan: most likely this is cyclic vomiting associated to marijuana use will proceed with egd to rule out other conditions (celiac, pud, etc) iv antiemetics and medical support (2) Hypokalemia: Code(s): E87.6 - Hypokalemia Status: Acute Assessment and Plan: repleted and now normal from emesis (3) Elevated LFTs: Code(s): R79.89 - Other specified abnormal findings of blood chemistry Status: Acute Assessment and Plan: resolved probably from intractable n/v and dehydration (4) Leukocytosis: Code(s): D72.829 - Elevated white blood cell count, unspecified Status: Acute Assessment and Plan: resolved (5) Cyclic vomiting syndrome: Code(s): R11.15 - Cyclical vomiting syndrome unrelated to migraine Status: Inactive Assessment and Plan: she understands that will need to stop smoking marijuana based on clinica course may try elavil or b-spring as prophylaxis GI Consult Note Consult date/time: 08/07/22 11:45 Reason for consult: n/v, cyclic vomiting HPI: Kathy Lemus is a 37 year old female with history of diverticulitis, irritable bowel syndrome, endometriosis, depression, and anxiety, daily marijuana smoker who came to the emergency department via private vehicle from home for evaluation of abdominal pain, nausea, vomiting that started last Friday. She had similar episodes last year up to 4 different times and will come in cycles, she says that at home will take hot shower to get some relief. Labs were significant for WBC count of 12.2, potassium 3.0, creatinine 0.70, AST 47, ALT 38 but normalized now. Urine drug screen was positive for cannabinoids. CT abdomen and pelvis and right upper quadrant ultrasound showed no significant abnormalities. Review of Systems Constitutional: Constitutional: Reports chills Eyes: Eyes: Denies blurry vision ENT: Reports Normal hearing present Cardiovascular: Cardiovascular: Denies chest pain Respiratory: Respiratory: Denies cough Gastrointestinal: Gastrointestinal: Reports abdominal pain, Reports nausea and Reports vomiting Genitourinary: Genitourinary: Denies hematuria Musculoskeletal: Musculoskeletal: Denies arthralgias Integumentary/Breasts: Skin/Breast: Denies rash Neurologic: Denies confusion Psychiatric: Psychiatric: Reports anxiety and Reports depression [facility] Past Medical History Medical History Anxiety Depression Irritable bowel syndrome Surgical History Surgical History History of bilateral salpingo-oophorectomy (06/19/22) History of partial hysterectomy Family History Family History Mother Family history of mental disorder Family history of bipolar disorder Father Family history of schizophrenia, Onset Age: 52 Grandparent Malignant neoplasm of prostate Social History Social History Smoking packs per day: 0.14 Smoking cigarettes per day: 2.8 Years smoked: 10 Smoking pack-years: 1.40 Smoking status: Former smoker Tobacco type: cigarettes Second hand tobacco smoke exposure: No Smoking end date: 02/10/10 Alcohol intake: former Drinks per week: 1 Substance use: current Substance use type: marijuana Last use: 08/03/2022 Lack of Transportation: No Lack of Food: Never True Current Housing: I Have Housing Concerned About Future Housing: No Difficulty Paying Gas/Electric Bills: No Difficulty Paying for Meds: No Currently Unemployed: No Education: Bachelor's Degree Difficulty w/ Childcare or Family Care: No Living arrangemen
[2022-08-07] MEDS: BENZOCAINE (*SP) 60 ML SPRAY CAN (HURRICAINE) 1 SPRAY MUCOUS MEM (11:51)
[2022-08-07 12:02] VITALS: BP 106/56; PULSE 53; RESP 18; O2SAT 96
[2022-08-07 12:12] VITALS: BP 104/65; PULSE 50; RESP 19; O2SAT 99
[2022-08-07 12:22] VITALS: BP 133/81; PULSE 50; RESP 19; O2SAT 100
--- NOTE | 2022-08-07 13:19 | PM.DS ---
DS: Admitting Diagnosis Discharge Date 08/07/22 Admitting Diagnosis Abdominal pain, nausea, vomiting, harmful thoughts. DS: Discharge Diagnosis Discharge Diagnosis (1) Intractable nausea and vomiting: Code(s): R11.2 - Nausea with vomiting, unspecified Status: Acute (2) Abdominal pain: Code(s): R10.9 - Unspecified abdominal pain Status: Acute (3) Irritable bowel syndrome: Code(s): K58.9 - Irritable bowel syndrome without diarrhea Status: Acute (4) Hypokalemia: Code(s): E87.6 - Hypokalemia Status: Acute (5) Dehydration: Code(s): E86.0 - Dehydration Status: Acute (6) Depression: Code(s): F32.A - Depression, unspecified Status: Acute (7) Elevated LFTs: Code(s): R79.89 - Other specified abnormal findings of blood chemistry Status: Acute DS: Summary Hospital Course Reason for hospitalization: Abd. pain, n/v, thoughts of self harm. Hospital Course: Kathy Lemus is a 37 y.o. female who presented with left sided abdominal pain and n/v. She has had similar symptoms in the past. She states she has had an EGD in the last year. She feels the symptoms were secondary to having pizza late at night the night prior to admission. She has had outpatient workup for chronic vomiting in the past, has tapered back on thc usage, and states she doesn't have severe chronic symptoms at this point. She also notes a recent hysterectomy which improved her chronic abdominal concerns markedly - about 6 weeks ago. On her presentation she was having thoughts of self harm. She states this was 2/2 the pain. There are no similar thoughts at this time. She states she feels much better from a depression and mental state viewpoint. In regards to the abdominal pain, an EGD was performed without any notable acute findings. Her labwork has remained stable. She is tolerating oral intake. Status at Discharge Cognitive/behavioral status at discharge: Stable. Functional status at discharge: independent ambulation Time Spent with Patient Time attestation: Total time spent providing and/or coordinating discharge services: Time spent: Greater than 30 minutes Exam Narrative: GENERAL APPEARANCE: Appears to be in no acute distress. HEAD: normocephalic atraumatic EYES: PERRL, EOMI. Vision grossly intact. ENT: Hearing grossly intact, no nasal discharge NECK: Neck supple, trachea midline. CARDIAC: Normal S1/S2. Rhythm is regular. No murmurs, rubs, or gallops. No cyanosis or pallor. Extremities are warm and well perfused. LUNGS: Clear to auscultation without rales, rhonchi, wheezing or diminished breath sounds. Respirations even and unlabored. ABDOMEN: BS positive x 4 quadrants. Mild epigastric tenderness to palpation. MSK: No joint tenderness/swelling, fair strength in all extremities. PERIPHERAL VASCULAR: Peripheral pulses palpable. Normal perfusion, cap refill <2 seconds. No edema. NEURO: Follows commands. No focal deficits. SKIN: [place] without lesions or eruptions. PSYCH: Stable, no paranoia or delusional thinking. DS: Data Data Completed and Pending Pending studies at discharge: Pending at discharge 08/07/22 11:59 Surgical [PTH] Routine Labs on day of discharge: Labs from last 24 hours 08/07/22 08/07/22 05:12 05:10 WBC 9.7 RBC 3.27 L Hgb 10.5 L Hct 30.3 L MCV 92.7 MCH 32.1 MCHC 34.7 RDW 12.5 Plt Count 258 MPV 10.1 Sodium 135 L Potassium 3.4 Chloride 103 Carbon Dioxide 29 Anion Gap 3 L BUN 8 D Creatinine 0.60 L Estim Creat Clear Calc 116 Estimated GFR > 60 Glucose 102 Calcium 8.5 Imaging Radiologist's impression: ITS Impressions Upper Quadrant Ultrasound 08/05/22 10:16 Impression: No significant abnormality seen. Abdomen/Pelvis CT 08/05/22 11:25 Impression: No significant abnormalities seen. Discharge Plan Discharge Attending physician on discharg
[2022-08-07 14:00] VITALS: BP 135/68; PULSE 53; RESP 14; TEMP 36.6; O2SAT 100
== END 2022-08-07 18:55 | disposition home or self-care (01) ==
LOC: ANHED 08:20 → ANH3MEDSUR 14:45 → ANHICU 16:49 → ANH3MEDSUR 17:22
PROVIDERS: Internal Medicine Gastroenterology; Physician Assistant; Admitting Provider Internal Medicine; Emergency Provider Emergency Medicine; PCP Physician Assistant; Visit Provider Nurse Practitioner Family
PROC: 0DJ08ZZ Inspection of Upper Intestinal Tract, Via Natural or Artificial Opening Endoscopic (ICD-10-PCS; CPT 43235; principal; 2022-08-07 12:00)
DX: R11.15 Cyclical vomiting syndrome unrelated to migraine (principal); K58.9 Irritable bowel syndrome, unspecified; E87.6 Hypokalemia; E86.0 Dehydration; Z20.822 Contact with and (suspected) exposure to COVID-19; F12.90 Cannabis use, unspecified, uncomplicated; F41.9 Anxiety disorder, unspecified; F32.A Depression, unspecified; R79.89 Other specified abnormal findings of blood chemistry; D72.829 Elevated white blood cell count, unspecified; R82.90 Unspecified abnormal findings in urine; E66.9 Obesity, unspecified; Z68.29 Body mass index [BMI] 29.0-29.9, adult; Z90.710 Acquired absence of both cervix and uterus; Z87.891 Personal history of nicotine dependence; Z79.3 Long term (current) use of hormonal contraceptives; Z79.899 Other long term (current) drug therapy
CPT/HCPCS: 43239; 36415; 36569; 74177; 76705; 80048; 80053; 80307; 81001; 83735; 84443; 85025; 85027; 87086; 87088; 87635; 88305; 96365; 96366; 96372; 96374; 96375; 96376; 99285; A9270; C1751; C9113; G0378; J0500; J1885; J2060; J2270; J2405; J2550; J2704; J3480; J7030; J7040; J7120; Q9967

== ENCOUNTER 2022-08-26 08:50 | Outpatient (CLI) | payer BC, SELFPAY ==
--- NOTE | ~2022-08-26 | NM_ITS ---
EXAMINATION: NM hepatobiliary wo pharm DATE: 08/26/2022 12:06 INDICATION: Epigastric abdominal tenderness. COMPARISON: CT abdomen and pelvis 08/05/2022 TECHNIQUE: 4.9 mCi Tc-99m mebrofenin (Choletec) was administered intravenously. Scintigraphic images of the abdomen were obtained for one hour. Then, the patient drank 8 oz Ensure, and imaging was cont inued for 60 minutes. FINDINGS: There is normal clearance of radiotracer from the blood pool. There is homogeneous tracer u ptake by the liver. Activity progresses to the bowel and gallbladder. Gallbladder ejection fraction (GBEF) was 54%. Note that with this technique, normal GBEF >= 33%. IMPRESSION: 1. Normal hepatobiliary scintigraphy. Reviewed, dictated and finalized at location A.
== END 2022-08-26 08:51 | disposition home or self-care (01) ==
PROVIDERS: PCP Physician Assistant; Referring Provider Internal Medicine Gastroenterology; Visit Provider Physician Assistant
DX: R10.816 Epigastric abdominal tenderness (principal)
CPT/HCPCS: 78226; A9537

== ENCOUNTER 2023-10-02 08:01 | Outpatient (CLI) | payer BC, SELFPAY ==
--- NOTE | ~2023-10-02 | XR_ITS ---
XR hip LT 2V w AP pelvis 10/02/2023 08:20 Indication: Left hip pain Procedure: AP pelvis and 2 views left hip Comparison: No prior studies for comparison. Findings: There is anatomic alignment. No fracture or traumatic malalignment. No soft tissue abnormal ity. No foreign bodies. Impression: 1: No significant bone or joint abnormality. Reviewed, dictated and finalized at location B. Impression: 1: No significant bone or joint abnormality.
== END 2023-10-02 08:02 | disposition home or self-care (01) ==
PROVIDERS: PCP Physician Assistant; Visit Provider Physician Assistant
DX: M54.32 Sciatica, left side (principal)
CPT/HCPCS: 73502

== ENCOUNTER 2023-12-25 09:00 | Outpatient (RCR) | payer BC, SELFPAY ==
--- NOTE | 2023-11-26 13:31 | OPREHPOC ---
Outpatient Therapy Plan of Care This is a Multidisciplinary Plan of Care that may contain components documented by all disciplines (PT, OT, and ST.) PT Problem 1 PT Problem #1 Knowledge Deficit PT Goal 1 Goal / Goal Update *indep with HEP * demonstrate correct body mechanics with lifting from floor Target Visit 8 PT Problem 2 PT Problem #2 Pain PT Goal 1 Goal / Goal Update 1* decrease pain rating to 4/10 at worst 2* radicular pain to L knee at worst 3* self assessment LE functional scale rating of 55% limitation in activity level 4* pt report sleeping tolerance of 4 hours at time Target Visit 8 PT Problem 3 PT Problem #3 Impaired Strength PT Goal 1 Goal / Goal Update increase trunk and hip strength for stability to spine: 1* strengthening mat exercises x 20 reps with good stability of trunk/hips 2* single leg standing L with good posture x 30 seconds Target Visit 8 PT Problem 4 PT Problem #4 Impaired Flexibility PT Goal 1 Goal / Goal Update increase hamstring flexibility, to decrease mold puller hip and sacrum: supine SLR 1* R 80' 2* L 75' Target Visit 8
--- NOTE | 2023-11-26 13:32 | PTOPEVAL1 ---
Assessment and note entered by Shilpa Crowley, PT Evaluation Information Assessment Status Evaluation ICD-10 Condition Codes (PT) Pain in left hip M25.552/ back pain-radicular Onset April 2023 Subjective Information gradual increase in pain over the past year, more in April with sleep being disrupted; Activity: decreased: ability with lifting; problems with work tasks: driving and lifting her bag in/out trunk; stairs; not hiking and doing outside activity like previously did do daily yoga stretching exercises- have good flexibility; Reported Pain Level Pain Score Self Report Additional Pain Score Comments pain range in the past week: -09/19: sharp, pain that radiates L sacral across butt; intermittent radicular to bottom of foot; increase pain: lifting, stairs, in/out car decrease pain: hot bath with epsom salts; ice have home stim unit--did not help; used massage vibration tool, helps some but area is tender reported sleeping tolerance of 3 hours at time, awaken due to pain Assessment PT Clinical Summary Kathy has the diagnosis of L hip pain; xray was negative of hip; LE functional scale rating of 80% limitation in activity. radicular pain into L LE to foot intermittent. Reports sleeping, walking, lifting and stair ability are affected by pain. With the evaluation: pain is increased with standing trunk extension > Flexion, prone on elbows and bilateral hamstring stretch; pain was decreased with distraction; Skilled PT services are indicated for modalities to decrease pain, therapeutic exercises to increase trunk and hip strength to stabilize spine ; education for home exercises and posture/body mechanics. Plan of Care Interventions Electrical Stimulation,Hot Pack/Cold Pack,Manual Therapy,Mechanical Traction,Neuro Re-education, Therapeutic Activities,Therapeutic Exercise, Ultrasound,Other, pt education Other Interventions taping PT Services Indicated Yes Treatment Frequency and 1-2x/wk for 8 visits Duration These treatments will address the objective and functional deficits as defined above. The patient will be advanced safely and appropriately in order for the patient to progress towards his/her prior level of function. Additional exercises will be introduced and as well as a comprehensive home exercise program upon discharge, if needed, ?to ensure carryover of functional gains achieved in the clinic. This treatment plan has been reviewed and agreement upon by the patient.
--- NOTE | 2023-12-25 09:56 | OPREHPOC ---
Outpatient Therapy Plan of Care This is a Multidisciplinary Plan of Care that may contain components documented by all disciplines (PT, OT, and ST.) PT Problem 1 PT Problem #1 Knowledge Deficit PT Goal 1 Goal / Goal Update *indep with HEP * demonstrate correct body mechanics with lifting from floor Target Visit 8 Progress Met PT Goal 2 Goal / Goal Update 12-25-23 progress goals met continue towards goals to progress education Target Visit 16 PT Problem 2 PT Problem #2 Pain PT Goal 1 Goal / Goal Update 1* decrease pain rating to 4/10 at worst 2* radicular pain to L knee at worst 3* self assessment LE functional scale rating of 55% limitation in activity level 4* pt report sleeping tolerance of 4 hours at time Target Visit 8 Progress Partially Met PT Goal 2 Goal / Goal Update 12-25-23 progress goal 4 met continue towards other goals Target Visit 16 PT Problem 3 PT Problem #3 Impaired Strength PT Goal 1 Goal / Goal Update increase trunk and hip strength for stability to spine: 1* strengthening mat exercises x 20 reps with good stability of trunk/hips 2* single leg standing L with good posture x 30 seconds Target Visit 8 Progress Partially Met PT Goal 2 Goal / Goal Update 12-25-23 progress goal 1 met; #2 improved to 18 seconds continue towards goals to progress strengthening and trunk stability Target Visit 16 PT Problem 4 PT Problem #4 Impaired Flexibility PT Goal 1 Goal / Goal Update increase hamstring flexibility, to decrease pick pulling machine tender hip and sacrum: supine SLR 1* R 80' 2* L 75' Target Visit 8 Progress Not Met PT Goal 2 Goal / Goal Update 12-25-23 progress goals not met; continue towards Target Visit 16
--- NOTE | 2023-12-25 09:57 | PTOPPROG ---
Assessment and note entered by Shilpa Crowley, PT Progress Report Assessment Status Progress ICD-10 Condition Codes (PT) Pain in left hip M25.552 Onset April 2023 Subjective Information am not doing any better; have found some exercises that help some; am more careful with getting in/out of the car and lifting my bags in/ out car; have dr hinds next week, want to talk with her about referral out to back dr; want to continue therapy, it helps some with the pain and the exercises are helping. PAIN: range in the past week 6-10/10; intermittent radicular pain to L foot decrease pain: wearing shoe inserts; heat; electrical stim increase pain: end of work day; more activity sleeping tolerance reported 4 hours at maximum; Assessment PT Clinical Summary Kathy has received 8 PT sessions. Compared to the initial evaluation: pain range from 4-8/10 to 6-10/10; continues to have radicular pain intermittent to L foot; self assessment functional score with LE scale, from 80 to 75% limitation in activity level; reported sleeping from 3 to 4 hours at time; increase trunk and hip strength; education for HEP and body mechanics, and pain management techniques. The goals were partially met. Continue PT. She is to follow up with her medical provider next week. Plan of Care Interventions Electrical Stimulation,Hot Pack/Cold Pack,Manual Therapy,Mechanical Traction,Neuro Re-education, Therapeutic Activities,Therapeutic Exercise, Ultrasound,Other Other Interventions taping PT Services Indicated Yes Treatment Frequency and 1-2x/wk for 8 visits Duration These treatments will address the objective and functional deficits as defined above. The patient will be advanced safely and appropriately in order for the patient to progress towards his/her prior level of function. Additional exercises will be introduced and as well as a comprehensive home exercise program upon discharge, if needed, ?to ensure carryover of functional gains achieved in the clinic. This treatment plan has been reviewed and agreement upon by the patient.
--- NOTE | 2024-01-20 10:38 | PTOPDC ---
Assessment and note entered by Shilpa Crowley, PT Discharge Report Assessment Status Discharge - Pt Not Present ICD-10 Condition Codes (PT) Pain in left hip M25.552 Onset April 2023 Subjective Information pt was not seen this date. Assessment PT Clinical Summary Kathy has received 8 PT sessions, from Nov 25 to December 24. She did not return for any further treatment after the December 24 progress report. Discharge PT services. The goals were not addressed. Plan of Care PT Services Indicated No
== END 2024-01-26 13:42 | disposition home or self-care (01) ==
LOC: ANHPT 09:00
PROVIDERS: PCP Physician Assistant; Visit Provider Physician Assistant
DX: M25.552 Pain in left hip (principal)
CPT/HCPCS: 97012; 97014; 97110; 97140; 97161; 97530; G0283

== ENCOUNTER 2024-02-06 19:58 | Emergency (ER) | payer BC, SELFPAY ==
[2024-02-06] VITALS (10 sets, daily range): BP systolic 91–141; BP diastolic 52–89; PULSE 73–132; RESP 15–141; TEMP 36.7–36.8; O2SAT 95–100
[2024-02-06 20:24] LABS: Basophils Absolute Auto 0.1 K/mm3 (0.0-0.1); Basophils Percent Auto 0.4 % (0.2-1.2); Eosinophils Percent Auto 0.2 % (0-4.4); Hematocrit 40.5 % (37.0-47.0); Hemoglobin 13.7 g/dL (12.0-15.0); Immature Granulocyte Absolute 0.07 K/mm3 (0.00-0.031); Immature Granulocyte Percent A 0.5 % (0-0.5); Lymphocytes Absolute Auto 1.48 K/mm3 (0.9-3.2); Lymphocytes Percent Auto 11.1 % (18.3-44.2); Mean Corpuscular HGB Conc 33.8 g/dl (32-36); Mean Corpuscular Hemoglobin 31.1 pg (26-34); Mean Platelet Volume 10.3 fl (7.4-10.4); Monocytes Absolute Auto 0.9 K/mm3 (0.1-0.6); Monocytes Percent Auto 6.6 % (2.6-8.5); Neutrophils Absolute Auto 10.8 K/mm3 (1.3-6.7); Neutrophils Percent Auto 81.2 % (45.5-73.1); Platelet Count Result 358 k/mm3 (150-375); White Blood Count 13.4 K/mm3 (4.5-10.0)
[2024-02-06 20:39] LABS: Acetaminophen < 10 ug/mL (10-30); Alanine Aminotransferase 136 U/L (6-35); Alkaline Phosphatase 105 U/L (38-126); Anion Gap 16 mmol/L (4-12); Aspartate Amino Transferase 92 U/L (14-36); Blood Urea Nitrogen 18 mg/dL (7-17); Calcium 10.2 mg/dL (8.4-10.2); Carbon Dioxide 20 mmol/L (22-30); Chloride 106 mmol/L (98-107); Estimated CRCL calculation 54 ml/min; Estimated Glomerular Filt Rate 51; Ethanol < 10 mg/dL (<10); Glucose 178 mg/dL (65-110); Potassium 3.7 mmol/L (3.4-5.0); Salicylate < 1.0 mg/dL (2-20); Sodium 142 mmol/L (137-145)
[2024-02-06 20:47] LABS: BEDSIDEPREGUCG Negative (Negative)
[2024-02-06] MEDS: HALOPERIDOL LACTATE 5 MG/ML VIAL IM (20:57)
[2024-02-06] MEDS: LORazepam INJ (*CRX) 2 MG/ML VIAL IM (20:58)
[2024-02-06 21:08] LABS: Add Urine Microscopic? YES; Amphetamine Screen Urine Negative (Negative); Appearance Urine Cloudy (Clear); Bacteria Urine None Seen /hpf; Barbiturate Screen Urine Negative (Negative); Benzodiazepines Screen Urine Positive (Negative); Bilirubin Urine 2+ (Negative); Blood Urine Negative (Negative); Cannabinoid Screen Urine Positive (Negative); Cocaine Screen Urine Negative (Negative); Color Urine Dark Yellow (Yellow); Glucose Urine UA Trace mg/dL (Negative); Hyaline Casts Urine Present /lpf; Ketones Urine 3+ mg/dL (Negative); Leukocyte Esterase Ur Negative LEU/UL (Negative); Methadone Screen Urine Negative (Negative); Mucus Urine Present /lpf; Need Manual Microscopic Reviewed; Nitrate Urine Negative (Negative); Non Pathogenic Casts >20; Opiate Screen Urine Negative (Negative); Phencyclidine Screen Urine Negative (Negative); Protein Urine 2+ mg/dL (Negative); Specific Grav Ur 1.033 (1.001-1.035); Squamous Epithelial Cell Urine Occasional /hpf (Few); WBC Urine 0-5 /hpf (0-3); pH Urine 5.5 (5.0-9.0)
--- NOTE | 2024-02-06 21:13 | ED.PSYCH ---
HPI - Psych General Chief Complaint: Psychiatric Symptoms <Woo Larios MD - Last Filed: 02/06/24 21:22> Stated Complaint: manic, kicking in doors at apartment <Woo Larios MD - Last Filed: 02/06/24 21:22> Time Seen by Provider: 02/06/24 19:59 <Woo Larios MD - Last Filed: 02/06/24 21:22> Source: EMS <Woo Larios MD - Last Filed: 02/06/24 21:22> Mode of arrival: EMS <Woo Larios MD - Last Filed: 02/06/24 21:22> Limitations: clinical condition <Woo Larios MD - Last Filed: 02/06/24 21:22> History of Present Illness HPI Narrative: 38-year-old with a history of bipolar disorder was brought in by EMS from home. Patient was found kicking neighbor's doors yelling. She was initially taken by PD and was later brought here to the ER. Patient was extremely combative mass per EMS she did received 300 mg of IM ketamine upon arrival to the ER she was calm and sedated. <Woo Larios MD - Last Filed: 02/06/24 21:22> Associated psychiatric symptoms: other ( Psychotic) <Woo Larios MD - Last Filed: 02/06/24 21:22> Related Data Home Medications: Home Medications ?Medication ?Instructions ?Recorded ?Confirmed ?Last Taken ?Type buspirone 10 mg tablet 10 mg PO TID 06/10/22 08/05/22 08/04/22 History duloxetine 60 mg capsule,delayed 60 mg PO DAILY 06/10/22 08/05/22 08/04/22 History release quetiapine 100 mg tablet 100 mg PO DAILY 06/10/22 08/05/22 08/04/22 History estradiol 1.25 gram/actuation 1 pump topical DAILY 08/05/22 08/05/22 Unknown History (0.06%) transdermal gel pump (EstroGel) <Woo Larios MD - Last Filed: 02/06/24 21:22> Allergies/Adverse Reactions: Allergies Allergy/AdvReac Type Severity Reaction Status Date / Time No Known Allergies Allergy Verified 09/26/22 11:10 <Woo Larios MD - Last Filed: 02/06/24 21:22> Review of Systems Review of Systems: ROS unobtainable: Yes unobtainable due to mental status <Woo Larios MD - Last Filed: 02/06/24 21:22> PMFSH Past Medical History Medical History: Medical History (Updated 02/06/24 @ 21:22 by Woo Larios MD) Cannabis abuse Depression Irritable bowel syndrome Anxiety <Woo Larios MD - Last Filed: 02/06/24 21:22> Surgical History Surgical History: Surgical History History of partial hysterectomy History of bilateral salpingo-oophorectomy (06/19/22) <Woo Larios MD - Last Filed: 02/06/24 21:22> Family History Family History: Family History Mother Family history of mental disorder Family history of bipolar disorder Father Family history of schizophrenia, Onset Age: 52 Grandparent Malignant neoplasm of prostate <Woo Larios MD - Last Filed: 02/06/24 21:22> Social History Social History: Social History Smoking packs per day: 0.14 Smoking cigarettes per day: 2.8 Years smoked: 10 Smoking pack-years: 1.40 Smoking status: Former smoker Tobacco type: cigarettes Second hand tobacco smoke exposure: No Smoking end date: 02/10/10 Alcohol intake: former Drinks per week: 1 Substance use: current Substance use type: unknown Last use: 08/03/2022 Lack of Transportation: No Lack of Food: Never True Current Housing: I Have Housing Concerned About Future Housing: No Difficulty Paying Gas/Electric Bills: No Difficulty Paying for Meds: No Currently Unemployed: No Education: Bachelor's Degree Difficulty w/ Childcare or Family Care: No Living arrangements: with family Spiritual care concerns: No <Woo Larios MD - Last Filed: 02/06/24 21:22> Exam Narrative: GENERAL: pt is arousable , well-nourished, and in no acute distress. screams in between HEAD: Normocephalic, atraumatic. EYES: PERRLA and EOMI. NECK: Supple. CHEST: Clear to auscultation. No respiratory distress. HEART: Regular rate and rhythm. No murmur heard. Normal peripheral pulses. ABDOMEN: Soft, nontender, nondistended, normal active bowel sounds. EXTREMITIES: Normal range of motion. No edema. SKIN: Warm, dry, no rash. NEURO: No focal deficits. Alert. PSYCH: Normal mood and affect. <Woo Larios MD - Last Filed: 02/06/24 21:22> Course Course Emergency Course: patient of I started screaming again I did give her Haldol 5 mg IM along with Ativan 2 mg. pt is medically stable for psychiatric evaluation. <Woo Larios MD - Last Filed: 02/06/24 21:22> patient of I started screaming again I did give her Haldol 5 mg IM along with Ativan 2 mg. pt is medically stable for psychiatric evaluation, referral transfer and admission. <Ayden Mitchell MD - Last Filed: 02/07/24 01:18> Vital Signs Vital signs: Vital Signs Temperature 36.8 C 02/06/24 19:55 Pulse Rate 132 H 02/06/24 19:55 Respiratory Rate 18 02/06/24 19:55 Blood Pressure 141/89 H 02/06/24 19:55 Pulse Oximetry 100 02/06/24 19:55 Oxygen Delivery Nasal Cannula 02/06/24 19:55 Oxygen Flow Rate 3 02/06/24 19:55 Temperature 36.7 C 02/06/24 22:06 Pulse Rate 118 H 02/06/24 23:17 Respiratory Rate 23 H 02/06/24 23:17 Blood Pressure 100/67 02/06/24 23:17 Pulse Oximetry 100 02/06/24 23:17 Oxygen Delivery Room Air 02/06/24 20:45 Oxygen Flow Rate 3 02/06/24 19:55 <Woo Larios MD - Last Filed: 02/06/24 21:22> Vital Signs Temperature 36.8 C 02/06/24 19:55 Pulse Rate 132 H 02/06/24 19:55 Respiratory Rate 18 02/06/24 19:55 Blood Pressure 141/89 H 02/06/24 19:55 Pulse Oximetry 100 02/06/24 19:55 Oxygen Delivery Nasal Cannula 02/06/24 19:55 Oxygen Flow Rate 3 02/06/24 19:55 Temperature 36.7 C 02/06/24 22:06 Pulse Rate 118 H 02/06/24 23:17 Respiratory Rate 23 H 02/06/24 23:17 Blood Pressure 100/67 02/06/24 23:17 Pulse Oximetry 100 02/06/24 23:17 Oxygen Delivery Room Air 02/06/24 20:45 Oxygen Flow Rate 3 02/06/24 19:55 <Ayden Mitchell MD - Last Filed: 02/07/24 01:18> MDM - Psych MDM Narrative Medical decision making narrative: The patient was seen by mental health and they are currently working on voluntary placement <Ayden Mitchell MD - Last Filed: 02/07/24 01:18> Lab Data Result diagrams: 02/06/24 20:20 02/06/24 20:20 <Woo Larios MD - Last Filed: 02/06/24 21:22> Labs: Lab Results 02/06/24 02/06/24 02/06/24 Range/Units 20:20 20:43 20:45 WBC 13.4 H (4.5-10.0) K/mm3 RBC 4.40 (4.2-5.4) M/mm3 Hgb 13.7 D (12.0-15.0) g/dL Hct 40.5 (37.0-47.0) % MCV 92.0 (80-100) fl MCH 31.1 (26-34) pg MCHC 33.8 (32-36) g/dl RDW 12.0 (11.5-14.5) % Plt Count 358 (150-375) k/mm3 MPV 10.3 (7.4-10.4) fl Immature Gran % (Auto) 0.5 (0-0.5) % Neut % (Auto) 81.2 H (45.5-73.1) % Lymph % (Auto) 11.1 L (18.3-44.2) % Evans % (Auto) 6.6 (2.6-8.5) % Eos % (Auto) 0.2 (0-4.4) % Baso % (Auto) 0.4 (0.2-1.2) % Lymph # (Auto) 1.48 (0.9-3.2) K/mm3 Evans # (Auto) 0.9 H (0.1-0.6) K/mm3 Eos # (Auto) 0.0 (0-0.3) K/mm3 Baso # (Auto) 0.1 (0.0-0.1) K/mm3 Abs Immat Gran (auto) 0.07 H (0.00-0.031) K/mm3 Absolute Neuts (auto) 10.8 H (1.3-6.7) K/mm3 Absolute Nucleated RBC 0.000 (0.0-0.012) K/mm3 Nucleated RBC % 0.0 (0.0-0.2) % Sodium 142 (137-145) mmol/L Potassium 3.7 (3.4-5.0) mmol/L Chloride 106 (98-107) mmol/L Carbon Dioxide 20 L (22-30) mmol/L Anion Gap 16 H (4-12) mmol/L BUN 18 H D (7-17) mg/dL Creatinine 1.20 H (0.7-1.0) mg/dL Estim Creat Clear Calc 54 ml/min Estimated GFR 51 L (59 - ) Glucose 178 H (65-110) mg/dL Calcium 10.2 (8.4-10.2) mg/dL Total Bilirubin 1.0 (0.2-1.3) mg/dL AST 92 H (14-36) U/L ALT 136 H (6-35) U/L Alkaline Phosphatase 105 (38-126) U/L Total Protein 8.0 (6.3-8.2) g/dL Albumin 5.0 (3.5-5.1) g/dL Urine Color Dark yellow (Yellow) Urine Appearance Cloudy H (Clear) Urine pH 5.5 (5.0-9.0) Ur Specific [place] 1.033 (1.001-1.035) Urine Protein 2+ H (Negative) mg/dL Urine Glucose (UA) Trace H (Negative) mg/dL Urine Ketones 3+ H (Negative) mg/dL Ur Blood (Man) Negative (Negative) Urine Nitrate Negative (Negative) Urine Bilirubin 2+ H (Negative) Urine Urobilinogen 1.0 (<2.0) mg/dL Add Ur Microanalysis Reviewed Leukocyte Esterase Rfl Negative (Negative) MOUNIKA/UL Urine RBC 6-10 H (0-2) /hpf Urine WBC 0-5 (0-3) /hpf Ur Squamous Epith Cells Occasional (Few) /hpf Urine Bacteria None seen /hpf Urine Casts >20 Hyaline Casts Present (None) /lpf Urine Mucus Present /lpf POC Urine HCG, Qual Negative (Negative) Salicylates < 1.0 L (2-20) mg/dL Urine Opiates Screen Negative (Negative) Urine Methadone Screen Negative (Negative) Acetaminophen < 10 L (10-30) ug/mL Ur Barbiturates Screen Negative (Negative) Ur Phencyclidine Scrn Negative (Negative) Ur Amphetamine Screen Negative (Negative) U Benzodiazepines Scrn Positive A (Negative) [place] (0.6-1.2) mmol/L Urine Cocaine Screen Negative (Negative) U Cannabinoids Screen Positive A (Negative) Ethyl Alcohol < 10 (<10) mg/dL Influenza A (RT-PCR) Influenza B (RT-PCR) RSV (RT-PCR) SARS-CoV-2 RNA (RT-PCR) 02/06/24 02/07/24 Range/Units 23:20 01:09 WBC (4.5-10.0) K/mm3 RBC (4.2-5.4) M/mm3 Hgb (12.0-15.0) g/dL Hct (37.0-47.0) % MCV (80-100) fl MCH (26-34) pg MCHC (32-36) g/dl RDW (11.5-14.5) % Plt Count (150-375) k/mm3 MPV (7.4-10.4) fl Immature Gran % (Auto) (0-0.5) % Neut % (Auto) (45.5-73.1) % Lymph % (Auto) (18.3-44.2) % Evans % (Auto) (2.6-8.5) % Eos % (Auto) (0-4.4) % Baso % (Auto) (0.2-1.2) % Lymph # (Auto) (0.9-3.2) K/mm3 Evans # (Auto) (0.1-0.6) K/mm3 Eos # (Auto) (0-0.3) K/mm3 Baso # (Auto) (0.0-0.1) K/mm3 Abs Immat Gran (auto) (0.00-0.031) K/mm3 Absolute Neuts (auto) (1.3-6.7) K/mm3 Absolute Nucleated RBC (0.0-0.012) K/mm3 Nucleated RBC % (0.0-0.2) % Sodium (137-145) mmol/L Potassium (3.4-5.0) mmol/L Chloride (98-107) mmol/L Carbon Dioxide (22-30) mmol/L Anion Gap (4-12) mmol/L BUN (7-17) mg/dL Creatinine (0.7-1.0) mg/dL Estim Creat Clear Calc ml/min Estimated GFR (59 - ) Glucose (65-110) mg/dL Calcium (8.4-10.2) mg/dL Total Bilirubin (0.2-1.3) mg/dL AST (14-36) U/L ALT (6-35) U/L Alkaline Phosphatase (38-126) U/L Total Protein (6.3-8.2) g/dL Albumin (3.5-5.1) g/dL Urine Color (Yellow) Urine Appearance (Clear) Urine pH (5.0-9.0) Ur Specific [place] (1.001-1.035) Urine Protein (Negative) mg/dL Urine Glucose (UA) (Negative) mg/dL Urine Ketones (Negative) mg/dL Ur Blood (Man) (Negative) Urine Nitrate (Negative) Urine Bilirubin (Negative) Urine Urobilinogen (<2.0) mg/dL Add Ur Microanalysis Leukocyte Esterase Rfl (Negative) MOUNIKA/UL Urine RBC (0-2) /hpf Urine WBC (0-3) /hpf Ur Squamous Epith Cells (Few) /hpf Urine Bacteria /hpf Urine Casts Hyaline Casts (None) /lpf Urine Mucus /lpf POC Urine HCG, Qual (Negative) Salicylates (2-20) mg/dL Urine Opiates Screen (Negative) Urine Methadone Screen (Negative) Acetaminophen (10-30) ug/mL Ur Barbiturates Screen (Negative) Ur Phencyclidine Scrn (Negative) Ur Amphetamine Screen (Negative) U Benzodiazepines Scrn (Negative) [place] < 0.2 L (0.6-1.2) mmol/L Urine Cocaine Screen (Negative) U Cannabinoids Screen (Negative) Ethyl Alcohol (<10) mg/dL Influenza A (RT-PCR) Pending Influenza B (RT-PCR) Pending RSV (RT-PCR) Pending SARS-CoV-2 RNA (RT-PCR) Pending <Woo Larios MD - Last Filed: 02/06/24 21:22> Lab Results 02/06/24 02/06/24 02/06/24 Range/Units 20:20 20:43 20:45 WBC 13.4 H (4.5-10.0) K/mm3 RBC 4.40 (4.2-5.4) M/mm3 Hgb 13.7 D (12.0-15.0) g/dL Hct 40.5 (37.0-47.0) % MCV 92.0 (80-100) fl MCH 31.1 (26-34) pg MCHC 33.8 (32-36) g/dl RDW 12.0 (11.5-14.5) % Plt Count 358 (150-375) k/mm3 MPV 10.3 (7.4-10.4) fl Immature Gran % (Auto) 0.5 (0-0.5) % Neut % (Auto) 81.2 H (45.5-73.1) % Lymph % (Auto) 11.1 L (18.3-44.2) % Evans % (Auto) 6.6 (2.6-8.5) % Eos % (Auto) 0.2 (0-4.4) % Baso % (Auto) 0.4 (0.2-1.2) % Lymph # (Auto) 1.48 (0.9-3.2) K/mm3 Evans # (Auto) 0.9 H (0.1-0.6) K/mm3 Eos # (Auto) 0.0 (0-0.3) K/mm3 Baso # (Auto) 0.1 (0.0-0.1) K/mm3 Abs Immat Gran (auto) 0.07 H (0.00-0.031) K/mm3 Absolute Neuts (auto) 10.8 H (1.3-6.7) K/mm3 Absolute Nucleated RBC 0.000 (0.0-0.012) K/mm3 Nucleated RBC % 0.0 (0.0-0.2) % Sodium 142 (137-145) mmol/L Potassium 3.7 (3.4-5.0) mmol/L Chloride 106 (98-107) mmol/L Carbon Dioxide 20 L (22-30) mmol/L Anion Gap 16 H (4-12) mmol/L BUN 18 H D (7-17) mg/dL Creatinine 1.20 H (0.7-1.0) mg/dL Estim Creat Clear Calc 54 ml/min Estimated GFR 51 L (59 - ) Glucose 178 H (65-110) mg/dL Calcium 10.2 (8.4-10.2) mg/dL Total Bilirubin 1.0 (0.2-1.3) mg/dL AST 92 H (14-36) U/L ALT 136 H (6-35) U/L Alkaline Phosphatase 105 (38-126) U/L Total Protein 8.0 (6.3-8.2) g/dL Albumin 5.0 (3.5-5.1) g/dL Urine Color Dark yellow (Yellow) Urine Appearance Cloudy H (Clear) Urine pH 5.5 (5.0-9.0) Ur Specific [place] 1.033 (1.001-1.035) Urine Protein 2+ H (Negative) mg/dL Urine Glucose (UA) Trace H (Negative) mg/dL Urine Ketones 3+ H (Negative) mg/dL Ur Blood (Man) Negative (Negative) Urine Nitrate Negative (Negative) Urine Bilirubin 2+ H (Negative) Urine Urobilinogen 1.0 (<2.0) mg/dL Add Ur Microanalysis Reviewed Leukocyte Esterase Rfl Negative (Negative) MOUNIKA/UL Urine RBC 6-10 H (0-2) /hpf Urine WBC 0-5 (0-3) /hpf Ur Squamous Epith Cells Occasional (Few) /hpf Urine Bacteria None seen /hpf Urine Casts >20 Hyaline Casts Present (None) /lpf Urine Mucus Present /lpf POC Urine HCG, Qual Negative (Negative) Salicylates < 1.0 L (2-20) mg/dL Urine Opiates Screen Negative (Negative) Urine Methadone Screen Negative (Negative) Acetaminophen < 10 L (10-30) ug/mL Ur Barbiturates Screen Negative (Negative) Ur Phencyclidine Scrn Negative (Negative) Ur Amphetamine Screen Negative (Negative) U Benzodiazepines Scrn Positive A (Negative) [place] (0.6-1.2) mmol/L Urine Cocaine Screen Negative (Negative) U Cannabinoids Screen Positive A (Negative) Ethyl Alcohol < 10 (<10) mg/dL Influenza A (RT-PCR) Influenza B (RT-PCR) RSV (RT-PCR) SARS-CoV-2 RNA (RT-PCR) 02/06/24 02/07/24 Range/Units 23:20 01:09 WBC (4.5-10.0) K/mm3 RBC (4.2-5.4) M/mm3 Hgb (12.0-15.0) g/dL Hct (37.0-47.0) % MCV (80-100) fl MCH (26-34) pg MCHC (32-36) g/dl RDW (11.5-14.5) % Plt Count (150-375) k/mm3 MPV (7.4-10.4) fl Immature Gran % (Auto) (0-0.5) % Neut % (Auto) (45.5-73.1) % Lymph % (Auto) (18.3-44.2) % Evans % (Auto) (2.6-8.5) % Eos % (Auto) (0-4.4) % Baso % (Auto) (0.2-1.2) % Lymph # (Auto) (0.9-3.2) K/mm3 Evans # (Auto) (0.1-0.6) K/mm3 Eos # (Auto) (0-0.3) K/mm3 Baso # (Auto) (0.0-0.1) K/mm3 Abs Immat Gran (auto) (0.00-0.031) K/mm3 Absolute Neuts (auto) (1.3-6.7) K/mm3 Absolute Nucleated RBC (0.0-0.012) K/mm3 Nucleated RBC % (0.0-0.2) % Sodium (137-145) mmol/L Potassium (3.4-5.0) mmol/L Chloride (98-107) mmol/L Carbon Dioxide (22-30) mmol/L Anion Gap (4-12) mmol/L BUN (7-17) mg/dL Creatinine (0.7-1.0) mg/dL Estim Creat Clear Calc ml/min Estimated GFR (59 - ) Glucose (65-110) mg/dL Calcium (8.4-10.2) mg/dL Total Bilirubin (0.2-1.3) mg/dL AST (14-36) U/L ALT (6-35) U/L Alkaline Phosphatase (38-126) U/L Total Protein (6.3-8.2) g/dL Albumin (3.5-5.1) g/dL Urine Color (Yellow) Urine Appearance (Clear) Urine pH (5.0-9.0) Ur Specific [place] (1.001-1.035) Urine Protein (Negative) mg/dL Urine Glucose (UA) (Negative) mg/dL Urine Ketones (Negative) mg/dL Ur Blood (Man) (Negative) Urine Nitrate (Negative) Urine Bilirubin (Negative) Urine Urobilinogen (<2.0) mg/dL Add Ur Microanalysis Leukocyte Esterase Rfl (Negative) MOUNIKA/UL Urine RBC (0-2) /hpf Urine WBC (0-3) /hpf Ur Squamous Epith Cells (Few) /hpf Urine Bacteria /hpf Urine Casts Hyaline Casts (None) /lpf Urine Mucus /lpf POC Urine HCG, Qual (Negative) Salicylates (2-20) mg/dL Urine Opiates Screen (Negative) Urine Methadone Screen (Negative) Acetaminophen (10-30) ug/mL Ur Barbiturates Screen (Negative) Ur Phencyclidine Scrn (Negative) Ur Amphetamine Screen (Negative) U Benzodiazepines Scrn (Negative) [place] < 0.2 L (0.6-1.2) mmol/L Urine Cocaine Screen (Negative) U Cannabinoids Screen (Negative) Ethyl Alcohol (<10) mg/dL Influenza A (RT-PCR) Pending Influenza B (RT-PCR) Pending RSV (RT-PCR) Pending SARS-CoV-2 RNA (RT-PCR) Pending <Ayden Mitchell MD - Last Filed: 02/07/24 01:18> Discharge Plan Discharge Clinical Impression: Psychotic disorder Qualifiers: Psychosis type: unspecified psychosis type Qualified Code(s): F29 - Unspecified psychosis not due to a substance or known physiological condition <Woo Larios MD - Last Filed: 02/06/24 21:22> Patient Disposition: Psychiatric Hosp <Woo Larios MD - Last Filed: 02/06/24 21:22> Condition: Stable <Woo Larios MD - Last Filed: 02/06/24 21:22> Patient Language: Libyan <Woo Larios MD - Last Filed: 02/06/24 21:22> Prescriptions: No Action quetiapine 100 mg tablet 100 mg PO DAILY buspirone 10 mg tablet 10 mg PO TID duloxetine 60 mg capsule,delayed release(DR/EC) 60 mg PO DAILY EstroGel 1.25 gram/actuation gel in metered-dose pump 1 pump topical DAILY <Woo Larios MD - Last Filed: 02/06/24 21:22> Follow-up/Referrals: Jose Miguel,JERROD Rousseau [Primary Care Provider] - <Woo Larios MD - Last Filed: 02/06/24 21:22>
--- NOTE | 2024-02-06 23:39 | PC.NURSE ---
initiated 4 point violent restraints at 2054 and discontinued 2244.
[2024-02-07] VITALS (10 sets, daily range): BP systolic 108–132; BP diastolic 56–80; PULSE 80–138; RESP 11–21; O2SAT 95–100
--- NOTE | 2024-02-07 00:13 | PC.NURSE ---
care and report given to RAQUEL Perez. all questions answered.
[2024-02-07 00:14] LABS: Lithium < 0.2 mmol/L (0.6-1.2)
[2024-02-07 01:51] LABS: Influenza A QL RT-PCR Negative (Negative); Influenza B QL RT-PCR Negative (Negative); RSV RNA, RT-PCR Negative (Negative); SARS-CoV-2 RNA PCR Negative (Negative)
--- NOTE | 2024-02-07 02:39 | PC.NURSE ---
this rn assumed care of patient. pt report was given to this rn by Penny Alejandro. pt moved from room 8 to room 15
--- NOTE | 2024-02-07 04:12 | PC.NURSE ---
this rn spoke with RAQUEL Carson at [facility] about bed placement. per yamileth, pt is unable to get a bed assignment at this time due to patient acuity. per Yamileth this facility is to call again about 1000 on 02/07/24 to try again for bed placement due to multiple discharges .
--- NOTE | 2024-02-07 06:32 | PC.NURSE ---
this rn spoke with Herber, her to give an update on patient status and to ask for her glasses and phone per patient request.
--- NOTE | 2024-02-07 09:50 | PC.NURSE ---
Report called to RAQUEL Harris at [facility], [place]. Accepting doctor is Peg Ramos and pt. is assigned room [id number]. [facility]. Ride to be set up for transfer.
--- NOTE | 2024-02-07 12:14 | PC.NURSE ---
updated in person by this RN. aware that pt. is being transferred to [facility] on a voluntary admission.
--- NOTE | 2024-02-07 12:28 | PC.NURSE ---
Pt. clothes left at [place] when pt. transferred to [facility]. Herber notified and states he will come to [place] to pick them up.
== END 2024-02-07 12:30 ==
PROVIDERS: Emergency Provider Family Medicine; PCP Physician Assistant
DX: F29 Unspecified psychosis not due to a substance or known physiological condition (principal); Z87.891 Personal history of nicotine dependence; Z20.822 Contact with and (suspected) exposure to COVID-19
CPT/HCPCS: 36415; 80053; 80143; 80178; 80179; 80307; 81001; 81025; 82077; 85025; 87637; 96372; 99285; J1630; J2060